=== PATIENT | male | born 1935 | race Caucasian/White ===

== ENCOUNTER 2017-04-17 12:08 | Inpatient (IN) ==
--- NOTE | 2017-04-17 12:26 | Emergency Department Note ---
Disposition Clinical Impression: Bradycardia Syncope Qualifiers: Syncope type: unspecified Qualified Code(s): R55 - Syncope and collapse Anemia Qualifiers: Anemia type: unspecified type Qualified Code(s): D64.9 - Anemia, unspecified Chronic kidney disease Qualifiers: Chronic kidney disease stage: unspecified stage Qualified Code(s): N18.9 - Chronic kidney disease, unspecified Disposition: Admitted As Inpatient Condition: Fair Syncope HPI - General Chief Complaint: ED Dizziness Stated Complaint: Dizzy/Weak/Near Syncope Time Seen by Provider: 04/17/17 12:15 Source: patient, EMS Mode of arrival: EMS Limitations: no limitations Nursing Notes Reviewed: Yes Vital Signs Reviewed: Yes - History of Present Illness HPI Narrative: 81-year-old male presents for evaluation for weakness AND syncope. Patient states that the symptoms have been for over a year but notes worsening in the past 24 hours. at bedside states he has had 2 single episodes where he passes out. Notes to be about 30 seconds. Denies any head injury or falls. Patient states it is prodrome prior to his facial flushing and weakness in the legs. Patient denies any chest penetrance of breath. Patient does have a extensive past medical history which includes A. fib on Coumadin. Patient also has a history of aortic repair. High blood pressure. Coronary artery disease. Patient denies any nausea or vomiting. No fevers. No cough. Denies any changes in medications. states that she administers the patient's medications. EMS reports that the patient did have long pauses in route via EMS. Patient was bradycardic in the 40s. Patient follows with cardiology at [facility]. Denies any dark stools or blood in his stool. Pt Subjective Complaint: loss of consciousness, felt faint Duration: second(s) Prodromal Symptoms: lightheaded Witnessed: yes - by bystander Context: at rest History: history of CAD Treatments prior to arrival: none Associated trauma secondary to event: No - Related Data Home Medications Medication Instructions Recorded Confirmed Acetaminophen [Tylenol] 1,000 mg PO Q6HR 04/17/17 04/17/17 Amiodarone [Cordarone] 100 mg PO DAILY 04/17/17 04/17/17 Amlodipine Besylate/Benazepril 1 tab PO DAILY 04/17/17 04/17/17 [Lotrel 5-20 mg Capsule] Aspirin 81 mg PO DAILY 04/17/17 04/17/17 Ferrous Sulfate [Iron] 325 mg PO DAILY 04/17/17 04/17/17 Metoprolol XL (24 HR) Succ [Toprol 25 mg PO DAILY 04/17/17 04/17/17 XL] Rosuvastatin Calcium [Crestor] 20 mg PO DAILY 04/17/17 04/17/17 Warfarin [Coumadin] 2 mg PO 1800 04/17/17 04/17/17 Allergies Allergy/AdvReac Type Severity Reaction Status Date / Time No Known Allergies Allergy Verified 03/10/16 15:01 All systems ED: reviewed and negative except as stated. Constitutional: Reports: as per HPI. Denies: fever Eyes: Reports: as per HPI ENT ED: Reports: as per HPI Cardiovascular: Reports: as per HPI. Denies: chest pain, palpitations Respiratory: Reports: as per HPI. Denies: cough, dyspnea Gastrointestinal: Reports: as per HPI. Denies: abdominal pain, nausea, vomiting Genitourinary: Reports: as per HPI Musculoskeletal: Reports: as per HPI Integumentary: Reports: as per HPI Neurological: Reports: as per HPI, weakness Psychiatric: Reports: as per HPI Endocrine: Reports: as per HPI Hematological/Lymphatic: Reports: as per HPI Allergic/Immunologic: Reports: as per HPI Past Medical History - Past Medical History Attestation: Yes The following information was validated with the patient. Medical history: Reports: atrial fibrillation, cancer, hypertension, myocardial infarction Psychiatric history: Reports: no psych history - Social History Smoking Status: Never smoker Smokeless Tobacco Status: No Alcohol use: Reports: occasionally Drug use: Reports: none Physical Exam - General Limitations: no limitations General appearance: alert, in no apparent distress - Head Head exam: atraumatic, normocephalic, normal inspection - Eye Eye exam: Present: normal appearance, EOMI - ENT ENT exam: normal exam, mucous membranes moist - Neck Neck exam: Present: normal inspection, trachea midline - Chest Chest inspection: Present: normal inspection, symmetric chest wall rise - Respiratory Respiratory exam: Present: normal lung sounds bilaterally. Absent: respiratory distress - Cardiovascular Cardiovascular exam: Present: bradycardia, irregular rhythm. Absent: systolic murmur - Abdominal Exam Abdominal exam: Present: soft, Non-Tender - Rectal Exam Secondary Social Studies Teacher present during exam: Yes Rectal exam: Present: normal inspection. Absent: heme (+) stool, black stool, bloody stool - Extremities Exam Extremities exam: Present: normal inspection. Absent: pedal edema - Back Exam Back exam: Present: normal inspection - Neurological Exam Neurological exam: Present: alert, oriented X3, CN II-XII intact - Expanded Neurological Exam Patient oriented to: Present: person, place, time Speech: Present: fluid speech Cranial nerves: EOM function (II, III, IV, ): Normal, facial sensation (V): Normal, facial palsy (VII): Normal, spinal accessory function (XI): Normal, tongue deviation (XII): Normal Cerebellar function: finger to nose: Normal Motor strength - LUE: 5/5 Motor strength - RUE: 5/5 Motor strength - LLE: 5/5 Motor strength - RLE: 5/5 Coma Scale Eye Opening: Spontaneous Coma Scale Motor Response: Obeys Commands Coma Scale Verbal Response: Oriented Coma Scale Total: 15 - Skin Skin exam: Present: warm, dry, intact, normal color, other Course Course Narrative: Patient seen and examined. Patient's alert and oriented 3. Rhythm strip reviewed the EMS shows long pauses with bradycardia in the 40s. Patient will get a cardiopulmonary evaluation including EKG, labs, chest x-ray troponin. Disposition likely admission for cardiopulmonary monitoring and cardiac evaluation. - Reevaluation(s) Reevaluation #1: Patient's resting comfortably. No acute distress. Time: 13:47 Vital Signs Temperature 98.9 F 04/17/17 12:10 Pulse Rate 66 04/17/17 12:10 Respiratory Rate 16 04/17/17 12:10 Blood Pressure 165/89 04/17/17 12:10 O2 Sat by Pulse Oximetry 100 04/17/17 12:10 Temperature 97.7 F 04/17/17 15:47 Pulse Rate 61 04/17/17 15:47 Respiratory Rate 16 04/17/17 15:47 Blood Pressure 187/55 04/17/17 15:47 O2 Sat by Pulse Oximetry 92 04/17/17 15:47 Oxygen Delivery Oxygen Delivery Room Air Syncope - [facility] Narrative Medical decision making narrative: 81-year-old male transferred by [facility] syncope. Patient has had witnessed syncopal episodes in the past 24 hours. No stiff last approximately 30 seconds. Does not describe an episode of seizures. No postictal period. Patient does have risk factor for syncope which includes arrhythmias. Patient has a history of A. fib on several antiarrhythmic medications which includes amiodarone metoprolol. Patient is also on blood pressure medicine including amlodipine. No recent changes in medications. Patient did have a prehospital EMS rhythm strip which showed a significant cause. Patient has not had any arrhythmias while in the emergency department. Patient's initial EKG shows normal sinus rhythm. Patient's lab work does show that he has chronic kidney disease. Patient is chronically anemic with negative occult blood. Patient also had a negative troponin. Given the degree of the patient's symptoms the patient would likely benefit from cardiopulmonary monitoring and further evaluation of his potential arrhythmia. Patient is therapeutic on his Coumadin. Patient is agreeable to plan of care. All questions were answered at bedside. - Lab Data Lab results reviewed: Yes I reviewed the patient's lab results. Result diagrams: 04/17/17 12:33 04/17/17 12:33 Lab Results 04/17/17 04/17/17 04/17/17 Range/Units 12:33 12:33 12:33 WBC 8.2 (4.3-11.1) K/mcL RBC 4.21 (4.19-5.50) M/mcL Hgb 12.0 L (12.9-16.9) g/dL Hct 36.7 L (37.5-50.1) % MCV 87.2 (83.0-100.0) fL MCH 28.5 (28.0-33.3) pg MCHC 32.7 (31.6-35.5) g/dL RDW 14.6 H (11.5-14.5) % Plt Count 115 L (140-400) K/mcL MPV 9.1 L (9.4-12.4) fL Immature Gran % 0.6 (0-4) % Seg Neutrophils % 65.9 % Lymphocytes % 20.7 % Monocytes % 10.2 % Eosinophils % 2.1 % Basophils % 0.5 % Neutrophils # 5.4 (1.6-8.9) K/mcL Lymphocytes # 1.7 (0.6-4.6) K/mcL Monocytes # 0.8 (0.0-1.3) K/mcL Eosinophils # 0.2 (0.0-0.6) K/mcL Basophils # 0.0 (0.0-0.2) K/mcL Immature Plt Fraction 2.5 (1.1-6.1) % PT 21.8 H (9.4-12.1) Seconds INR 2.0 Sodium 136 (136-145) mEq/L Potassium 4.1 (3.5-4.5) mEq/L Chloride 107 (98-109) mEq/L Carbon Dioxide 22 (19-29) mEq/L BUN 34 H (8-26) mg/dL Creatinine 1.70 H (0.72-1.25) mg/dL Est GFR ( Amer) 47 L (> 60) Est GFR (Non-Af Amer) 39 L (> 60) BUN/Creatinine Ratio 20 (6-26) Glucose 86 (70-99) mg/dL Calculated Osmolality 289 (280-300) Calcium 8.4 L (8.6-10.8) mg/dL Phosphorus (2.3-4.7) mg/dL Magnesium (1.6-2.6) mg/dL Total Bilirubin 0.6 (0.2-1.2) mg/dL AST 21 (5-34) Units/L ALT 17 (0-55) Units/L Alkaline Phosphatase 147 H (38-126) Units/L Troponin I (0-0.03) ng/mL B-Natriuretic Peptide (0-100) pg/mL Serum Total Protein 7.0 (6.0-8.3) g/dL Albumin 3.3 L (3.5-5.0) g/dL Globulin 3.7 H (2.4-3.5) g/dL Albumin/Globulin Ratio 0.9 L (1.1-2.2) 04/17/17 04/17/17 04/17/17 Range/Units 12:33 12:33 12:33 WBC (4.3-11.1) K/mcL RBC (4.19-5.50) M/mcL Hgb (12.9-16.9) g/dL Hct (37.5-50.1) % MCV (83.0-100.0) fL MCH (28.0-33.3) pg MCHC (31.6-35.5) g/dL RDW (11.5-14.5) % Plt Count (140-400) K/mcL MPV (9.4-12.4) fL Immature Gran % (0-4) % Seg Neutrophils % % Lymphocytes % % Monocytes % % Eosinophils % % Basophils % % Neutrophils # (1.6-8.9) K/mcL Lymphocytes # (0.6-4.6) K/mcL Monocytes # (0.0-1.3) K/mcL Eosinophils # (0.0-0.6) K/mcL Basophils # (0.0-0.2) K/mcL Immature Plt Fraction (1.1-6.1) % PT (9.4-12.1) Seconds INR Sodium (136-145) mEq/L Potassium (3.5-4.5) mEq/L Chloride (98-109) mEq/L Carbon Dioxide (19-29) mEq/L BUN (8-26) mg/dL Creatinine (0.72-1.25) mg/dL Est GFR ( Amer) (> 60) Est GFR (Non-Af Amer) (> 60) BUN/Creatinine Ratio (6-26) Glucose (70-99) mg/dL Calculated Osmolality (280-300) Calcium (8.6-10.8) mg/dL Phosphorus 2.2 L (2.3-4.7) mg/dL Magnesium 1.9 (1.6-2.6) mg/dL Total Bilirubin (0.2-1.2) mg/dL AST (5-34) Units/L ALT (0-55) Units/L Alkaline Phosphatase (38-126) Units/L Troponin I 0.02 (0-0.03) ng/mL B-Natriuretic Peptide 389 H (0-100) pg/mL Serum Total Protein (6.0-8.3) g/dL Albumin (3.5-5.0) g/dL Globulin (2.4-3.5) g/dL Albumin/Globulin Ratio (1.1-2.2) - Radiology Data Radiology results reviewed: Yes I reviewed the patient's radiology results. Chest X-Ray 04/17/17 12:21 IMPRESSION: Persistent blunting of the right costophrenic angle could represent a persistent right pleural effusion or scarring Stable cardiomegaly D/ / González Lawrence MD / González Lawrence MD Interpreting Provider: González Lawrence MD - EKG Data EKG attestation: Yes I reviewed and interpreted this EKG. EKG shows normal: sinus rhythm Rate: normal Rhythm: NSR Viola/QRS: normal Q waves: aVR Interpretation: unchanged when compared to prior tracing (date), nonspecific ST- T wave changes S.B.A.R. - Sugey.Cachorro Situation: Demographics Background: Presenting Complaint Assessment: Vital Signs, Course and respsone to treatment, Patient/Family Expectation Recommendation: Barrier(s) to disposition, Recommendation based on pending studies, treatments, or consults S.B.AToby Report Given to: Kimmy Friedman Repor Time: 14:04 Attestation Statement - Attestation Attestation: I examined this patient and my medical decision-making was reviewed with the DUMP OPERATOR/PA/Advanced Practice Nurse/Resident Physician. I agree with the documented findings, disposition and treatment plan as described except to the extent set forth below. 81-year-old male presents to ED because recurrent episodes of syncope. He has syncopal episode at the office of his primary care physician today. He has had several episodes at home as well. He reports feeling flushed and weak and then passes out for about 30 seconds at a time. Denies associated chest pain or dyspnea. No secondary injuries. No recent vomiting, diarrhea or bloody stools. No recent change in medications. Pleasant, elderly male in no apparent distress. The membranes are moist. Neck supple. Trachea midline no JVD. Chest clear to auscultation bilaterally. Cardiac exam regular but bradycardic. Abdomen soft, nondistended and nontender. Extremities warm and dry without rash or edema. EKG with sinus rhythm. 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 Prehospital tracing revealed heart rate down as low as 20 for short periods of time. Metabolic workup is unremarkable. He will be admitted for closer monitoring and further evaluation of his syncope.
[2017-04-17 12:41] LABS: Basophils % 0.5 %; Eosinophils # 0.2 K/mcL (0.0-0.6); Eosinophils % 2.1 %; Hematocrit 36.7 % (37.5-50.1); Immature Granulocytes % 0.6 % (0-4); Immature Platelets 2.5 % (1.1-6.1); Lymphocytes # 1.7 K/mcL (0.6-4.6); Lymphocytes % 20.7 %; Mean Corpuscular HGB Conc 32.7 g/dL (31.6-35.5); Mean Corpuscular Hemoglobin 28.5 pg (28.0-33.3); Mean Corpuscular Volume 87.2 fL (83.0-100.0); Mean Platelet Volume 9.1 fL (9.4-12.4); Monocytes # 0.8 K/mcL (0.0-1.3); Monocytes % 10.2 %; Neutrophils # 5.4 K/mcL (1.6-8.9); Platelet Count 115 K/mcL (140-400); Red Blood Count 4.21 M/mcL (4.19-5.50); Red Cell Distribution Width 14.6 % (11.5-14.5); Segmented Neutrophils % 65.9 %
[2017-04-17 12:45] LABS: Prothrombin Time 21.8 Seconds (9.4-12.1)
[2017-04-17 12:52] LABS: Magnesium 1.9 mg/dL (1.6-2.6); Phosphorous 2.2 mg/dL (2.3-4.7)
[2017-04-17 12:53] LABS: Albumin 3.3 g/dL (3.5-5.0); Albumin/Globulin Ratio 0.9 (1.1-2.2); Bilirubin,Total 0.6 mg/dL (0.2-1.2); Calcium 8.4 mg/dL (8.6-10.8); Globulin 3.7 g/dL (2.4-3.5); Potassium 4.1 mEq/L (3.5-4.5)
[2017-04-17] MEDS ORDERED: Acetaminophen 325 MG TABLET PO PRN (15:11)
[2017-04-17] MEDS ORDERED: Naloxone 0.4 MG/ML INJ IVP PRN (15:11)
--- NOTE | 2017-04-17 15:23 | Internal Med History&Physical ---
<Kimi Sweet - Last Filed: 04/17/17 17:43> Date of Encounter: 04/17/17 Time of Encounter: 15:22 Assessment and Plan (1) Syncope Current visit: Yes Status: Acute 1 patient has been experiencing episodes of syncope that have been occurring more frequently over the past week. Patient does have extensive cardiac history he is on antiarrhythmics He has some vascular conditions with a recent stent to his aorta. We will hold his metoprolol for now continue with amiodarone 2 obtain cardiac echo 3 cardiac monitoring 4carotid Dopplers [address] of head without contrast 6 orthostatic vitals 7 for precautions 8 consult cardiology as needed have patient follow-up as outpatient 9 consult neurology as needed Qualifiers: Syncope type: unspecified Qualified Code(s): R55 - Syncope and collapse (2) Bradycardia Current visit: Yes Status: Acute 1 patient has been experiencing episodes of bradycardia heart rate down into the 40s. He appears to be symptomatic. We will hold beta duane for now 2 continuous cardiac monitoring 3 IV fluids 4 atropine at bedside (3) Chronic kidney disease Current visit: No Status: Chronic 1 present he appears to be at his baseline creatinine. 1.70. We will continue to monitor 2 monitor intake and output daily weights 3 avoid nephrotoxins Qualifiers: Chronic kidney disease stage: stage 3 (moderate) Qualified Code(s): N18.3 - Chronic kidney disease, stage 3 (moderate) (4) Atrial fibrillation Current visit: Yes Status: Acute 1 we will hold beta duane for now due to bradycardia, continue with amiodarone 2 continue with Coumadin daily INR Qualifiers: Atrial fibrillation type: chronic Qualified Code(s): I48.2 - Chronic atrial fibrillation (5) Hypertension Current visit: Yes Status: Acute 1 we will continue with home medications goals to be systolic less than 140-if orthostatic vitals are positive we will hold Qualifiers: Hypertension type: essential hypertension Qualified Code(s): I10 - Essential (primary) hypertension (6) DVT prophylaxis Current visit: Yes Status: Acute Patient is on Coumadin he is therapeutic Internal Medicine - H&P: HPI Chief complaint: syncopal episode Admitted From: Emergency Dept Plans for Post Hospital Care: Home History of present illness: Mr. Dave is a 81 year old male has a history of atrial fibrillation hypertension hyperlipidemia coronary artery disease with stent stent placed and aorta November of this year's CK D stage III. Patient states that he has been experiencing episodes of syncope for approximately a month however within the past week the episodes become more frequent. According to the patient symptoms of facial flushing and weakness in his legs. He then is weak/limp unable to stand or control his limbs his eyes will roll back into his head and he is unable to respond. He states he does not lose consciousness, he is aware of his surroundings and came here what is going on but unable to respond. He states the episodes last approximately 30 seconds, he awakens and there is no post ictal period. He is aware of his surrounding is able to speak. He denies any loss of bowel or bladder. states she does notice some shaking of extremities however patient has constant tremor. He denies any palpitations headaches vision changes shortness of breath or chest pain prior or during the episodes denies any history of seizure or trauma to her head. He states that these episodes frequently occur after he has eaten. Today the patient presented to his primary care physician due to these complaints. He was walking into the physician's office and he felt flushed and told his that he was going to pass out. Staff assisted patient to a wheelchair blood glucose was obtained he was 90. EMS was called to transport patient to the ER. Upon transport was noted patient's heart rate in the 40s with several episodes of pauses. Once he arrived to the emergency department he was in atrial fibrillation in the 50s and 60s. He was alert and appropriate. Lab work was unremarkable troponin was 0.02 INR was therapeutic. Chest x-ray with her sister blunting and right costophrenic angle. He is being admitted for further work up evaluation. Presently the patient denies any chest pain shortness of breath dizziness lightheadedness he is appropriate and alert following commands. Lungs sounds are clear heart sounds S1 and S2 with no rubs, scales murmurs noted he has A. fib on the monitor and rate of 58. He is hemodynamically stable at this time IV this case with who agrees with plan. Past Med Surg Social Fam HX - Past Medical History Medical history: atrial fibrillation, cancer, hypertension, myocardial infarction Psychiatric history: no psych history - Social History Smoking Status: Never smoker Smokeless Tobacco Status: No Alcohol use: occasionally Drug use: none - Family History Mother Hx Family Cardiac Disorders: Yes Father Hx Family Respiratory Disorders: Yes Internal Medicine - H&P: Meds Acetaminophen [Tylenol] 1,000 mg PO Q6HR 04/17/17 [History] Amiodarone [Cordarone] 100 mg PO DAILY 04/17/17 [History] Amlodipine Besylate/Benazepril [Lotrel 5-20 mg Capsule] 1 tab PO DAILY 04/17/17 [History] Aspirin 81 mg PO DAILY 04/17/17 [History] Ferrous Sulfate [Iron] 325 mg PO DAILY 04/17/17 [History] Rosuvastatin Calcium [Crestor] 20 mg PO DAILY 04/17/17 [History] Warfarin [Coumadin] 2 mg PO 1800 04/17/17 [History] amLODIPine [Norvasc] 5 mg PO DAILY #30 tablet 04/20/17 [Rx] Allergies No Known Allergies Allergy (Verified 03/10/16 15:01) All Systems PM: A 10-system review of systems was performed and is negative for pertinent findings except as documented above in the HPI. - Constitutional Constitutional: no chills, no fever(s), no night sweats - EENT Eyes: no change in vision, no discharge, no pain, no photophobia - Cardiovascular Cardiovascular ROS IM: syncope, no chest pain, no diaphoresis, no dyspnea, no lightheadedness, no palpitations - Respiratory Respiratory: no cough, no dyspnea, no wheezing, no excessive phlegm production - Gastrointestinal Gastrointestinal: no abdominal pain, no diarrhea, no hematemesis, no hematochezia, no melena, no nausea, no vomiting - Musculoskeletal Musculoskeletal ROS IM: no numbness, no tingling - Integumentary Integumentary IM: no rash, no unusual bruising - Neurological Neurological ROS: no confusion, no convulsions, no focal weakness, no numbness, no tingling, no tremor(s) - Constitutional Vitals: Temp Pulse Resp BP Pulse Ox 98.9 F 59 16 177/77 97 04/17/17 12:10 04/17/17 14:44 04/17/17 14:44 04/17/17 14:44 04/17/17 14:44 General appearance: Present: A&O X 3, answers questions appropriately - Head Head exam: Present: atraumatic, normocephalic - Eye Eye exam: Present: PERRL, conjuntiva pink, sclera anicteric Pupils: Present: PERRL - Neck Neck exam general surgery: Present: supple, trachea midline. Absent: lymphadenopathy - Respiratory Respiratory exam: Present: CTAB. Absent: accessory muscle use, rales, rhonchi, wheezes - Cardiovascular Cardiovascular exam: Present: RRR, +S1, +S2. Absent: diastolic murmur, gallop, rubs, systolic murmur - GI/Abdominal GI/Abdominal exam: Present: normal bowel sounds, soft, no peritoneal signs. Absent: distended, tenderness - Extremities Exam Extremities exam: Present: warm, radial pulses palpable and symetrical. Absent : calf tenderness, cyanotic, pedal edema - Neurological Exam Neurological exam: Present: CN II-XII intact, oriented X3, no focal deficits. Absent: pronater drift, facial droop, speech deficit - Skin Skin exam: Present: dry, intact Internal Med - H&P Results - Labs CBC & Chem 7: 04/17/17 12:33 04/17/17 12:33 - EKG Data Prior EKG available for review: yes EKG comments: 04/17/17 17:46 Atrial fibrillation - Diagnostic Studies Chest x-ray Additional comments: Chest X-Ray 04/17/17 12:21 IMPRESSION: Persistent blunting of the right costophrenic angle could represent a persistent right pleural effusion or scarring Stable cardiomegaly D/ / González Lawrence MD / González Lawrence MD Interpreting Provider: González Lawrence MD <Edgar Crandall P - Last Filed: 04/20/17 17:53> Date of Encounter: 04/20/17 Internal Medicine - H&P: HPI History of present illness: Mr. Dave is a 81 year old male All Systems PM: A 10-system review of systems was performed and is negative for pertinent findings except as documented above in the HPI. - Constitutional Vitals: Temp Pulse Resp BP Pulse Ox 97.7 F 61 16 187/55 92 04/17/17 15:47 04/17/17 15:47 04/17/17 15:47 04/17/17 15:47 04/17/17 15:47 Internal Med - H&P Results - Labs CBC & Chem 7: 04/20/17 05:45 04/20/17 05:45 - Attending Attestation I examined this patient and my medical decision-making was reviewed with the GEAR INSPECTOR/PA/Advanced Practice Nurse/Resident Physician. I agree with the documented findings, disposition and treatment plan as described except to the extent set forth below.
[2017-04-17] MEDS ORDERED: *HR* Warfarin 2 MG TABLET PO SCH (18:00)
[2017-04-17] MEDS ORDERED: Warfarin perPT PO PRN (18:00)
[2017-04-17] MEDS: 0.9 % Sodium Chloride 1,000 ML IVC SCH (18:29)
[2017-04-18 01:23] LABS: Basophils % 0.4 %; Eosinophils # 0.2 K/mcL (0.0-0.6); Eosinophils % 3.1 %; Hematocrit 34.8 % (37.5-50.1); Hemoglobin 11.1 g/dL (12.9-16.9); Immature Granulocytes % 0.6 % (0-4); Lymphocytes # 1.4 K/mcL (0.6-4.6); Lymphocytes % 20.5 %; Mean Corpuscular HGB Conc 31.9 g/dL (31.6-35.5); Mean Corpuscular Hemoglobin 27.8 pg (28.0-33.3); Mean Corpuscular Volume 87.2 fL (83.0-100.0); Monocytes # 0.7 K/mcL (0.0-1.3); Monocytes % 10.5 %; Neutrophils # 4.3 K/mcL (1.6-8.9); Platelet Count 102 K/mcL (140-400); Red Blood Count 3.99 M/mcL (4.19-5.50); Red Cell Distribution Width 14.6 % (11.5-14.5); Segmented Neutrophils % 64.9 %
[2017-04-18 01:28] LABS: INR 1.9; Prothrombin Time 20.5 Seconds (9.4-12.1)
[2017-04-18 01:35] LABS: Calcium 8.3 mg/dL (8.6-10.8); Potassium 3.9 mEq/L (3.5-4.5)
--- NOTE | 2017-04-18 07:22 | Electrocardiograph Report ---
[place] [facility] Test Date: 2017-04-17 Pat Name: Isma Dave Department: 102 Room: 2A37 Gender: M Electrical Power Station Technician: Thor : 1935 Requested By: Kian Boston Order Number: [id number] Reading MD: Marcelo Reynolds MD Measurements Intervals [place] Rate: 65 P: -8 [place]: 183 QRS: 6 QRSD: 118 T: 60 QT: 463 QTc: 474 Interpretive Statements SINUS RHYTHM LEFT VENTRICULAR HYPERTROPHY AND ST-T CHANGE Electronically Signed On 04-18-2017 7:20:19 EDT by Marcelo Reynolds MD
[2017-04-18] MEDS: *HR* Amiodarone 200 MG TABLET PO SCH (07:59)
[2017-04-18] MEDS: Aspirin 81 MG TAB.CHEW PO SCH (08:00)
[2017-04-18] MEDS ORDERED: AMLODIPINE BESYLATE PO SCH (09:00)
[2017-04-18] MEDS ORDERED: BENAZEPRIL PO SCH (09:00)
--- NOTE | 2017-04-18 09:24 | Cardiology Consult Note ---
Date of Encounter: 04/18/17 Time of Encounter: 09:19 Assessment and Plan (1) Symptomatic bradycardia Current Visit: Yes Status: Acute Reports intermittent dizziness over the past year that has recently worsened. Dizziness accompanied by weakness. HR reportedly 30s-40s during transport. HR 65 on ED EKG. He denies losing consciousness, states he is aware of surroundings , but unable to respond when the episodes occur. On Amiodarone 100mg daily and Toprol XL 25mg daily. Follows with cardiology at [facility]. He reports last seen 11/2016. K and Mag within normal range. Check TSH. 24 hour tele AVG HR 59, longest pause 4.6 seconds during nocturnal hours. Agree with stopping Toprol XL. Avoid AV andrew blockers. Pt currently remains on Amiodarone 100mg daily. Will discuss with Dr. Hsu. Check echo to evaluate structure and function. Continue to follow. No urgent need for PPM at this time. (2) CAD (coronary artery disease) Current Visit: Yes Status: Chronic Pt reports hx of PCI 2-3 years ago at [facility]. Denies chest pain. Troponins negative x 3. ASA, Statin. No BB due to bradycardia. Qualifiers: Coronary Disease-Associated Artery/Lesion type: [place] artery [place] vs. transplanted heart: [place] heart Associated angina: without angina Qualified Code(s): I25.10 - Atherosclerotic heart disease of [place] coronary artery without angina pectoris (3) Atrial fibrillation Current Visit: Yes Status: Chronic Appears to be maintaining SR on Amiodarone. Anticoagulated on Coumadin, INR 1.9. Qualifiers: Atrial fibrillation type: unspecified Qualified Code(s): I48.91 - Unspecified atrial fibrillation (4) Hypertension Current Visit: Yes Status: Acute Elevated on admission, now better controlled. Will continue to monitor and add antihypertensives as necessary. Qualifiers: Hypertension type: essential hypertension Qualified Code(s): I10 - Essential (primary) hypertension Discussion w patient/family: The assessment and plan as outlined above was discussed with the patient and/or family members who expressed understanding and agreement. All questions were answered. Thank you for involving us in the care of your patient. Please call with any questions. I will discuss all the above with Dr. Hsu and make changes as necessary. History of Present Illness Consult date: 04/18/17 Requesting physician: Kimi Sweet Consult reason: bradycardia Chief complaint: dizzy, lightheaded History of present illness: Mr. Dave is a 81 year old male with PMH of atrial fibrillation on Coumadin, hypertension, hyperlipidemia, coronary artery disease with hx of PCI, stent placed for AAA in November, CKD stage III. Patient states that he has been experiencing episodes of dizziness/lightheadedness over the past year, but recently has been more frequent. He states he initially gets facial flushing and weakness in his legs. He then is weak/limp unable to stand or control his limbs his eyes will roll back into his head and he is unable to respond. However , he does not lose consciousness, reports he is aware of his surroundings and has never lost consciousness. He had episodes in PCP office yesterday and squad was called. He denies any palpitations headaches vision changes shortness of breath or chest pain prior or during the episodes denies any history of seizure or trauma to her head. Upon transport was noted patient's heart rate in the 40s with several episodes of pauses. Once he arrived to the ED HR was 50s-60s. Pt is on Amiodarone 100mg daily at home, reports being on for 4-5 years. He was also on Toprol XL at home, held since admission. 24 hour tele AVG HR 59, 4.6 second pause nocturnal. Pt reports HR was 37 around 4 AM and he was dizzy, since resolved. Past Med Surg Social Fam HX - Past Medical History Medical history: aortic aneurysm, atrial fibrillation, cancer, coronary artery disease, hypertension, myocardial infarction Psychiatric history: no psych history - Past Surgical History Surgical History: angioplasty/stent - Social History Smoking Status: Never smoker Smokeless Tobacco Status: No Alcohol use: occasionally Drug use: none - Family History Mother Hx Family Cardiac Disorders: Yes Father Hx Family Respiratory Disorders: Yes Medications and Allergies Acetaminophen [Tylenol] 1,000 mg PO Q6HR 04/17/17 [History] Amiodarone [Cordarone] 100 mg PO DAILY 04/17/17 [History] Amlodipine Besylate/Benazepril [Lotrel 5-20 mg Capsule] 1 tab PO DAILY 04/17/17 [History] Aspirin 81 mg PO DAILY 04/17/17 [History] Ferrous Sulfate [Iron] 325 mg PO DAILY 04/17/17 [History] Metoprolol XL (24 HR) Succ [Toprol XL] 25 mg PO DAILY 04/17/17 [History] Rosuvastatin Calcium [Crestor] 20 mg PO DAILY 04/17/17 [History] Warfarin [Coumadin] 2 mg PO 1800 04/17/17 [History] Allergies No Known Allergies Allergy (Verified 03/10/16 15:01) All Systems Review: A 10-system review of systems was performed and is negative for pertinent findings except as documented above in the HPI. - Constitutional Constitutional: fatigue, weakness - Cardiovascular Cardiovascular: as per HPI, lightheadedness - Neurological Neurological: dizziness Physical Examination Vital Signs, Last 4 Hours Temp Pulse Resp BP Pulse Ox 04/18/17 06:38 98.6 F 61 18 154/72 97 Vital Signs Temp Pulse Resp BP Pulse Ox 04/18/17 06:38 98.6 F 61 18 154/72 97 04/18/17 03:43 97.8 F 51 18 123/58 97 04/18/17 00:16 98.3 F 62 18 148/64 97 04/17/17 19:19 98 F 59 16 184/79 97 04/17/17 15:47 97.7 F 61 16 187/55 92 04/17/17 15:25 16 177/77 04/17/17 14:44 59 16 177/77 97 04/17/17 14:05 58 16 177/85 96 04/17/17 13:22 62 17 172/104 98 04/17/17 12:53 59 17 179/88 99 04/17/17 12:10 98.9 F 66 16 165/89 100 Intake and Output 04/17/17 04/18/17 04/18/17 23:59 07:59 15:59 Intake Total 120 / 120 480 / 480 Output Total 880 / 880 Balance -760 / -760 480 / 480 Intake: Oral 120 / 120 480 / 480 Output: Urine 880 / 880 Other: Meal Dinner Breakfast Percent of Meal Consumed 100% 100% Weight 68.3 kg Patient Weight 04/18/17 23:59 Weight 68.3 kg General: Conversant, No Apparent Distress HEENT: Atraumatic, Normocephaly, Mucus Membranes Moist Neck: No JVD, Normal carotid pulses Cardiac: Reg Rate and Rhythm, Normal S1 and S2, No Murmur Lungs: Normal Breath Sounds, No Wheeze, Rales, Rhonchi Neuro: Alert and responsive, No focal deficits noted Abdomen: Soft, Non-Tender Skin: No rashes noted on visualized skin Musculoskeletal: No Chest Wall Tenderness Extremities: No Clubbing, No Cyanosis, No Edema, Normal Pulses Results 04/18/17 00:49 04/18/17 00:49 Lab Results 04/17/17 04/18/17 04/18/17 17:58 00:49 00:49 WBC 6.7 Hgb 11.1 L Hct 34.8 L Plt Count 102 L INR Sodium Potassium Chloride Carbon Dioxide BUN Creatinine Glucose Calcium Troponin I 0.02 0.03 04/18/17 04/18/17 00:49 00:49 WBC Hgb Hct Plt Count INR 1.9 Sodium 138 Potassium 3.9 Chloride 110 H Carbon Dioxide 21 BUN 28 H Creatinine 1.68 H Glucose 108 H Calcium 8.3 L Troponin I Short CBC 04/18/17 04/17/17 Range/Units 00:49 12:33 WBC 6.7 8.2 (4.3-11.1) K/mcL Hgb 11.1 L 12.0 L (12.9-16.9) g/dL Hct 34.8 L 36.7 L (37.5-50.1) % Plt Count 102 L 115 L (140-400) K/mcL Neutrophils # 4.3 5.4 (1.6-8.9) K/mcL BMP 04/18/17 04/17/17 Range/Units 00:49 12:33 Sodium 138 136 (136-145) mEq/L Potassium 3.9 4.1 (3.5-4.5) mEq/L Chloride 110 H 107 (98-109) mEq/L Carbon Dioxide 21 22 (19-29) mEq/L BUN 28 H 34 H (8-26) mg/dL Creatinine 1.68 H 1.70 H (0.72-1.25) mg/dL Glucose 108 H 86 (70-99) mg/dL Calcium 8.3 L 8.4 L (8.6-10.8) mg/dL Cardiac Enzymes 04/18/17 04/17/17 04/17/17 Range/Units 00:49 17:58 12:33 Troponin I 0.03 0.02 0.02 (0-0.03) ng/mL Liver Function 04/17/17 Range/Units 12:33 Total Bilirubin 0.6 (0.2-1.2) mg/dL AST 21 (5-34) Units/L ALT 17 (0-55) Units/L Alkaline Phosphatase 147 H (38-126) Units/L Albumin 3.3 L (3.5-5.0) g/dL Impressions Chest X-Ray 04/17/17 12:21 IMPRESSION: Persistent blunting of the right costophrenic angle could represent a persistent right pleural effusion or scarring Stable cardiomegaly D/ / González Lawrence MD / González Lawrence MD Interpreting Provider: González Lawrence MD Head CT 04/17/17 16:03 IMPRESSION: No acute intracranial abnormality. D/ / Louis Hanley MD / Louis Hanley MD Interpreting Provider: Louis Hanley MD Active Medications Acetaminophen (Tylenol) 650 mg PO Q6HR PRN PRN Reason: Mild Pain (1-3) Stop: 10/17/17 15:12 Amiodarone HCl (Cordarone) 100 mg PO DAILY [facility] Stop: 10/18/17 09:01 Last Admin: 04/18/17 07:59 Dose: 100 mg Aspirin (Aspirin) 81 mg PO DAILY [facility] Stop: 10/18/17 09:01 Last Admin: 04/18/17 08:00 Dose: 81 mg Ferrous Sulfate (Ferrous Sulfate) 325 mg PO DAILY [facility] Stop: 10/18/17 09:01 Hydralazine HCl (Hydralazine) 10 mg IVP Q6HR PRN PRN Reason: sbp >150 Stop: 10/17/17 20:19 Naloxone HCl (Narcan) 0.4 mg IVP Q2MIN PRN PRN Reason: Opioid Reversal Stop: 10/17/17 15:12 Pharmacy Profile Note (Patient Taking Own Medication) 0 each PO DAILY [facility] Stop: 10/18/17 09:01 Last Admin: 04/18/17 08:30 Dose: Not Given Rosuvastatin Calcium (Crestor) 20 mg PO DAILY [facility] Stop: 10/18/17 09:01 Last Admin: 04/18/17 08:00 Dose: 20 mg Warfarin Sodium (Coumadin) 2 mg PO 1800 [facility] Stop: 10/17/17 18:01 Last Admin: 04/17/17 18:24 Dose: 2 mg Warfarin Sodium (Coumadin Perpt) 1 each PO DAILY@1800 PRN PRN Reason: SEE COMMENTS Stop: 10/17/17 18:01 - EKG Interpretation EKG results cardiology: personally reviewed (SR, 1st degree block), other (24 hour tele AVG HR 59, nocturnal pauses up to 4.6 seconds.) Consult Discharge Plan - Plan Referrals: Kane Phillips MD [Primary Care Provider] -
--- NOTE | 2017-04-18 13:35 | Internal Med Progress Note ---
Date of Encounter: 04/18/17 Time of Encounter: 13:31 - Subjective Interval history: Patient seen and examined at bedside. Resting comfortably in bed and in no distress. Reported to have an episode of bradycardia overnight for which he was awoken by the nursing staff, states as he woke up, he felt dizzy at that time but denies any recurrent episodes. No other discomfort reported at this time. Assessment and Plan (1) Syncope Current visit: Yes Status: Acute Likely secondary to bradycardia will hold BB dose no recurrent episodes since hospitalization continue tele monitoring f/u 2D echo, carotid dopplers CT head negative for any acute intracranial abnormalities cardiology consultation appreciated. Qualifiers: Syncope type: unspecified Qualified Code(s): R55 - Syncope and collapse (2) Bradycardia Current visit: Yes Status: Acute Resolved at this time will continue to hold BB dose continue tele monitoring (3) Chronic kidney disease Current visit: No Status: Chronic renal funciton at baseline continue to monitor Qualifiers: Chronic kidney disease stage: stage 3 (moderate) Qualified Code(s): N18.3 - Chronic kidney disease, stage 3 (moderate) (4) Atrial fibrillation Current visit: Yes Status: Acute Hold BB at this time continue amiodarone pharmacy to dose coumadin monitor INR, goal INR: 2-3 Qualifiers: Atrial fibrillation type: chronic Qualified Code(s): I48.2 - Chronic atrial fibrillation (5) Hypertension Current visit: Yes Status: Acute Noted to be hypertensive will hold BB given bradycardia added Hydralazine 10mg IV q6h prn SBP>150 Qualifiers: Hypertension type: essential hypertension Qualified Code(s): I10 - Essential (primary) hypertension (6) DVT prophylaxis Current visit: Yes Status: Acute anticoagulated with Coumadin - Constitutional Vitals: Temp Pulse Resp BP Pulse Ox 98.9 F 63 18 155/64 92 04/18/17 10:46 04/18/17 10:46 04/18/17 10:46 04/18/17 10:46 04/18/17 10:46 General appearance: Present: A&O X 3, no acute distress - Head Head exam: Present: atraumatic, normocephalic - Eye Eye exam: Present: normal appearance, conjuntiva pink, sclera anicteric - Respiratory Respiratory exam: Present: CTAB. Absent: accessory muscle use, rales, rhonchi, wheezes - Cardiovascular Cardiovascular exam: Present: RRR, +S1, +S2. Absent: diastolic murmur, gallop, rubs, systolic murmur - GI/Abdominal GI/Abdominal exam: Present: normal bowel sounds, soft, no peritoneal signs. Absent: distended, tenderness - Extremities Exam Extremities exam: Present: warm, radial pulses palpable and symetrical. Absent : calf tenderness, pedal edema - Neurological Exam Neurological exam: Present: alert, oriented X3 - Psychiatric Psychiatric exam: Present: normal affect, normal mood Internal Medicine: Result - Labs CBC & Chem 7: 04/18/17 00:49 04/18/17 00:49 Labs: Short CBC 04/18/17 Range/Units 00:49 WBC 6.7 (4.3-11.1) K/mcL Hgb 11.1 L (12.9-16.9) g/dL Hct 34.8 L (37.5-50.1) % Plt Count 102 L (140-400) K/mcL Neutrophils # 4.3 (1.6-8.9) K/mcL BMP 04/18/17 00:49 Sodium 138 Potassium 3.9 Chloride 110 H Carbon Dioxide 21 BUN 28 H Creatinine 1.68 H Glucose 108 H Calcium 8.3 L Cardiac Enzymes 04/17/17 04/18/17 Range/Units 17:58 00:49 Troponin I 0.02 0.03 (0-0.03) ng/mL - ABG Interpretation ABG results: PT/INR, D-dimer PT 20.5 Seconds (9.4-12.1) H 04/18/17 00:49 - Impressions Impressions Head CT 04/17/17 16:03 IMPRESSION: No acute intracranial abnormality. D/ / Louis Hanley MD / Louis Hanley MD Interpreting Provider: Louis Hanley MD Consult Discharge Plan - Plan Referrals: Kane Phillips MD [Primary Care Provider] -
--- NOTE | 2017-04-18 15:56 | Carotid Imaging Report ---
Carotid Duplex Patient Name:Isma Dave Order Number:[id number] Procedure Date:04/17/2017 Date:4Age:81 yrs Gender:Male Rt.BP:187 / 55 mmHgHeart Rate: Location:[facility] Room #: 37 Product Safety Technician:Amira Cosby, [place] Referring MD:Kimi Sweet CNP client experience consultant:Kane Phillips M.D. Reading MD:Magdi Bell MD Primary Indications:Syncope and collapse Risk Factors Yes/No Hypertension Yes Hypercholesterolemia Yes Impressions: Findings: Bilateral proximal ICA has a severe, 60-79% stenosis. Recommendations: Risk Factor Modification, Medical Therapy, and Follow up exam 12 months. Preliminary noted in pt EMR. Findings Carotid Duplex: Right: The right proximal common carotid artery has a PSV of 71 cm/s and a EDV of 11 cm/s. There is nonstenotic plaque in the right mid common carotid artery with a PSV of 75 cm/s and a EDV of 11 cm/s. The right distal common carotid artery has a PSV of 71 cm/s and a EDV of 13 cm/s. There is nonstenotic plaque in the right bifurcation with a PSV of 68 cm/s and a EDV of 13 cm/s. There is irregular plaque. There is 60-79% stenosis in the right proximal internal carotid artery with a PSV of 166 cm/s and a EDV of 31 cm/s. There is irregular plaque. The right mid internal carotid artery has a PSV of 67 cm/s and a EDV of 11 cm/s. The right distal internal carotid artery has a PSV of 60 cm/s and a EDV of 10 cm/s. The right eca has a PSV of 218 cm/s and a EDV of 16 cm/s. The right vertebral artery has a PSV of 75 cm/s and a EDV of 13 cm/s. There is antegrade spectral Doppler flow patterns. Left: The left proximal common carotid artery has a PSV of 83 cm/s and a EDV of 12 cm/s. The left mid common carotid artery has a PSV of 87 cm/s and a EDV of 15 cm/s. The left distal common carotid artery has a PSV of 78 cm/s and a EDV of 16 cm/s. There is nonstenotic plaque in the left bifurcation with a PSV of 157 cm/s and a EDV of 19 cm/s. There is 60-79% stenosis in the left proximal internal carotid artery with a PSV of 162 cm/s and a EDV of 20 cm/s. The left mid internal carotid artery has a PSV of 110 cm/s and a EDV of 18 cm/s. The left distal internal carotid artery has a PSV of 88 cm/s and a EDV of 19 cm/s. The left eca has a PSV of 179 cm/s and a EDV of 10 cm/s. The left vertebral artery has a PSV of 59 cm/s and a EDV of 13 cm/s. There is antegrade spectral Doppler flow patterns. Prior Study: No prior study available for comparison. Carotid Results Right PSV EDV Assessment Proximal CCA 71 11 Mid CCA 75 11 Non Stenotic Plaque Distal CCA 71 13 Bifurcation 68 13 Non Stenotic Plaque Proximal ICA 166 31 60-79% stenosis Mid ICA 67 11 Distal ICA 60 10 ECA 218 16 Vertebral Artery 75 13 Antegrade Flow Left PSV EDV Assessment Proximal CCA 83 12 Mid CCA 87 15 Distal CCA 78 16 Bifurcation 157 19 Non Stenotic Plaque Proximal ICA 162 20 60-79% stenosis Mid ICA 110 18 Distal ICA 88 19 ECA 179 10 Vertebral Artery 59 13 Antegrade Flow Ratio's Right ICA/CCA Ratio: 2.21 ICA/CCA Values: 166/75 Left ICA/CCA Ratio: 1.86 ICA/CCA Values: 162/87 Updated by Magdi Bell MD on 04/18/2017 3:52:27 PM electronically signed on 04/18/2017 3:52:51 PM with status of Final
[2017-04-18] MEDS: 0.9 % Sodium Chloride 1,000 ML IVC SCH (16:05)
[2017-04-19 05:01] LABS: INR 1.8; Prothrombin Time 19.3 Seconds (9.4-12.1)
[2017-04-19] MEDS: *HR* Amiodarone 200 MG TABLET PO SCH (08:20)
[2017-04-19] MEDS: Aspirin 81 MG TAB.CHEW PO SCH (08:20)
[2017-04-19] MEDS: AMLODIPINE BESYLATE PO SCH (08:21)
[2017-04-19] MEDS: BENAZEPRIL PO SCH (08:21)
[2017-04-19] MEDS ORDERED: amLODIPine 5 MG TABLET PO ONE (08:43)
[2017-04-19 09:05] LABS: Basophils % 0.5 %; Eosinophils # 0.2 K/mcL (0.0-0.6); Eosinophils % 2.6 %; Hematocrit 38.5 % (37.5-50.1); Hemoglobin 12.3 g/dL (12.9-16.9); Immature Granulocytes % 0.5 % (0-4); Lymphocytes # 1.3 K/mcL (0.6-4.6); Lymphocytes % 17.7 %; Mean Corpuscular HGB Conc 31.9 g/dL (31.6-35.5); Mean Corpuscular Hemoglobin 28.6 pg (28.0-33.3); Mean Corpuscular Volume 89.5 fL (83.0-100.0); Mean Platelet Volume 10.1 fL (9.4-12.4); Monocytes # 0.7 K/mcL (0.0-1.3); Monocytes % 9.7 %; Neutrophils # 5.1 K/mcL (1.6-8.9); Platelet Count 103 K/mcL (140-400); Red Cell Distribution Width 15.1 % (11.5-14.5)
[2017-04-19 09:18] LABS: Calcium 8.6 mg/dL (8.6-10.8); Magnesium 2.1 mg/dL (1.6-2.6); Phosphorous 2.7 mg/dL (2.3-4.7); Potassium 3.9 mEq/L (3.5-4.5)
--- NOTE | 2017-04-19 09:42 | Cardiology Progress Note ---
Date of Encounter: 04/19/17 Time of Encounter: 09:40 Assessment and Plan (1) Symptomatic bradycardia Current Visit: Yes Status: Resolved Reports intermittent dizziness and presyncope over the past year that has recently worsened with HR 30s-40s during transport, pause up to 4.6 seconds on tele 04/18/17. Stopped Toprol XL 25mg daily. On Amiodarone 100mg daily. Follows with cardiology at [facility]. He reports last seen 11/2016. HR now improved since stopping BB. 12 hour tele AVG HR 68, lowest HR 59, no significant pauses. Pt has not had any pauses since yesterday 04/18 AM at 9:50 4.2 seconds. Pt denies any dizziness since yesterday. Echo EF 50%. Discussed with Dr. Hsu. Recommend monitoring one more night. Will re- evaluate in AM. Do not anticipate that PPM will be warranted during stay. (2) CAD (coronary artery disease) Current Visit: Yes Status: Chronic Pt reports hx of PCI 2-3 years ago at [facility]. Denies chest pain. Troponins negative x 3. ASA, Statin. No BB due to bradycardia. Qualifiers: Coronary Disease-Associated Artery/Lesion type: [place] artery [place] vs. transplanted heart: [place] heart Associated angina: without angina Qualified Code(s): I25.10 - Atherosclerotic heart disease of [place] coronary artery without angina pectoris (3) Atrial fibrillation Current Visit: Yes Status: Chronic Appears to be maintaining SR on Amiodarone. Anticoagulated on Coumadin, INR 1.8. Will resume, since does not appear PPM will be warranted. Qualifiers: Atrial fibrillation type: unspecified Qualified Code(s): I48.91 - Unspecified atrial fibrillation (4) Hypertension Current Visit: Yes Status: Acute Elevated. Start Norvasc. Qualifiers: Hypertension type: essential hypertension Qualified Code(s): I10 - Essential (primary) hypertension Discussion w patient/family: The assessment and plan as outlined above was discussed with the patient and/or family members who expressed understanding and agreement. All questions were answered. Thank you for involving us in the care of your patient. Please call with any questions. I will discuss all the above with Dr. Hsu and make changes as necessary. Subjective Principal diagnosis: bradycardia Interval history: Pt denies any dizziness overnight. 12 hour tele AVG HR 68, no significant pauses. Lowest HR in past 12 hours 59. Last pause noted was yesterday AM at 9: 50 4.2 seconds. Echo EF 50%, mild concentric LVH, mild diastolic dysfunction, mild AR. Objective Vital Signs, Last 4 Hours Temp Pulse Resp BP Pulse Ox 04/19/17 06:40 98.5 F 69 18 177/83 93 Vital Signs Temp Pulse Resp BP Pulse Ox 04/19/17 06:40 98.5 F 69 18 177/83 93 04/19/17 04:11 98.5 F 70 16 134/55 96 04/19/17 00:07 98.6 F 72 16 163/72 97 04/18/17 19:25 98.9 F 72 16 154/66 96 04/18/17 15:32 98.7 F 65 18 168/71 94 04/18/17 10:46 98.9 F 63 18 155/64 92 Intake and Output 04/18/17 04/19/17 04/19/17 23:59 07:59 15:59 Intake Total 0 / 0 480 / 480 Balance 0 / 0 480 / 480 Intake: Oral 0 / 0 480 / 480 Other: Meal Breakfast Percent of Meal Consumed 100% Weight 68.765 kg Patient Weight 04/19/17 23:59 Weight 68.765 kg General: Conversant, No Apparent Distress HEENT: Atraumatic, Normocephaly, Mucus Membranes Moist Neck: No JVD, Normal carotid pulses Cardiac: Reg Rate and Rhythm, Normal S1 and S2, No Murmur Lungs: Normal Breath Sounds, No Wheeze, Rales, Rhonchi Neuro: Alert and responsive, No focal deficits noted Abdomen: Soft, Non-Tender Skin: No rashes noted on visualized skin Musculoskeletal: No Chest Wall Tenderness Extremities: No Clubbing, No Cyanosis, No Edema, Normal Pulses Results 04/19/17 08:48 04/19/17 08:48 Lab Results 04/19/17 04/19/17 04/19/17 04:18 08:48 08:48 WBC 7.4 Hgb 12.3 L Hct 38.5 Plt Count 103 L INR 1.8 Sodium 138 Potassium 3.9 Chloride 110 H Carbon Dioxide 21 BUN 26 Creatinine 1.86 H Glucose 131 H Calcium 8.6 Magnesium 2.1 - Imaging and Cardiology Echo: report reviewed - EKG Interpretation EKG results cardiology: other (12 hour tele AVG HR 68, no significant pauses) Consult Discharge Plan - Plan Referrals: Kane Phillips MD [Primary Care Provider] -
--- NOTE | 2017-04-19 12:47 | Internal Med Progress Note ---
Date of Encounter: 04/19/17 Time of Encounter: 12:44 - Subjective Interval history: Patient seen and examined with family present at bedside. Reports of feeling well and no recurrent episodes of dizziness since yesterday. No recurrent episodes of bradycardia reported. Assessment and Plan (1) Syncope Current visit: Yes Status: Acute Likely secondary to bradycardia continue to hold BB dose no recurrent episodes since hospitalization continue tele monitoring Carotid dopplers positive for severe bilateral carotid stenosis. Vascular surgery consultation requested CT head negative for any acute intracranial abnormalities cardiology consultation appreciated. Qualifiers: Syncope type: unspecified Qualified Code(s): R55 - Syncope and collapse (2) Bradycardia Current visit: Yes Status: Acute Resolved at this time will continue to hold BB dose continue tele monitoring (3) Chronic kidney disease Current visit: No Status: Chronic renal funciton at baseline continue to monitor Qualifiers: Chronic kidney disease stage: stage 3 (moderate) Qualified Code(s): N18.3 - Chronic kidney disease, stage 3 (moderate) (4) Atrial fibrillation Current visit: Yes Status: Acute Hold BB at this time continue amiodarone pharmacy to dose coumadin monitor INR, goal INR: 2-3 coumadin was placed on hold by cardiology as there was a possibility of pt requiring PPM placement, however rate currently controlled and pt asymptomatic, will resume coumadin today. Qualifiers: Atrial fibrillation type: chronic Qualified Code(s): I48.2 - Chronic atrial fibrillation (5) Hypertension Current visit: Yes Status: Acute Noted to be hypertensive this morning gave additional dose of amlodipine 5mg PO with adequate BP control Hydralazine 10mg IV q6h prn SBP>150 will closely monitor Qualifiers: Hypertension type: essential hypertension Qualified Code(s): I10 - Essential (primary) hypertension (6) DVT prophylaxis Current visit: Yes Status: Acute anticoagulated with Coumadin - Constitutional Vitals: Temp Pulse Resp BP Pulse Ox 98.7 F 71 18 149/66 94 04/19/17 10:42 04/19/17 10:42 04/19/17 10:42 04/19/17 10:42 04/19/17 10:42 General appearance: Present: A&O X 3, no acute distress - Head Head exam: Present: atraumatic, normocephalic - Eye Eye exam: Present: normal appearance, conjuntiva pink, sclera anicteric - Respiratory Respiratory exam: Present: CTAB. Absent: accessory muscle use, rales, rhonchi, wheezes - Cardiovascular Cardiovascular exam: Present: RRR, +S1, +S2. Absent: diastolic murmur, gallop, rubs, systolic murmur - GI/Abdominal GI/Abdominal exam: Present: normal bowel sounds, soft, no peritoneal signs. Absent: distended, tenderness - Extremities Exam Extremities exam: Present: warm, radial pulses palpable and symetrical. Absent : calf tenderness, cyanotic, pedal edema - Neurological Exam Neurological exam: Present: alert, oriented X3 - Psychiatric Psychiatric exam: Present: normal affect, normal mood Internal Medicine: Result - Labs CBC & Chem 7: 04/19/17 08:48 04/19/17 08:48 Labs: Short CBC 04/19/17 Range/Units 08:48 WBC 7.4 (4.3-11.1) K/mcL Hgb 12.3 L (12.9-16.9) g/dL Hct 38.5 (37.5-50.1) % Plt Count 103 L (140-400) K/mcL Neutrophils # 5.1 (1.6-8.9) K/mcL BMP 04/19/17 08:48 Sodium 138 Potassium 3.9 Chloride 110 H Carbon Dioxide 21 BUN 26 Creatinine 1.86 H Glucose 131 H Calcium 8.6 - ABG Interpretation ABG results: PT/INR, D-dimer PT 19.3 Seconds (9.4-12.1) H 04/19/17 04:18 Consult Discharge Plan - Plan Referrals: Kane Phillips MD [Primary Care Provider] -
[2017-04-19] MEDS ORDERED: Warfarin perPT PO PRN (18:00)
[2017-04-19] MEDS ORDERED: *HR* Warfarin 3 MG TABLET PO ONE (18:00)
[2017-04-20 06:20] LABS: INR 1.7; Prothrombin Time 18.7 Seconds (9.4-12.1)
[2017-04-20 06:25] LABS: Basophils % 0.3 %; Eosinophils # 0.2 K/mcL (0.0-0.6); Eosinophils % 3.6 %; Hematocrit 36.3 % (37.5-50.1); Hemoglobin 11.4 g/dL (12.9-16.9); Immature Granulocytes % 0.5 % (0-4); Lymphocytes # 1.1 K/mcL (0.6-4.6); Lymphocytes % 17.4 %; Mean Corpuscular HGB Conc 31.4 g/dL (31.6-35.5); Mean Corpuscular Hemoglobin 27.9 pg (28.0-33.3); Monocytes # 0.8 K/mcL (0.0-1.3); Monocytes % 11.8 %; Neutrophils # 4.3 K/mcL (1.6-8.9); Platelet Count 106 K/mcL (140-400); Red Blood Count 4.08 M/mcL (4.19-5.50); Segmented Neutrophils % 66.4 %
[2017-04-20 06:31] LABS: Calcium 8.6 mg/dL (8.6-10.8); Phosphorous 3.1 mg/dL (2.3-4.7); Potassium 3.9 mEq/L (3.5-4.5)
[2017-04-20 06:53] LABS: Thyroid Stimulating Hormone 0.694 mcIU/mL (0.350-4.840)
--- NOTE | 2017-04-20 08:06 | Electrocardiograph Report ---
[place] [address] Test Date: 2017-04-18 Pat Name: DELMY LEBLANC Department: 112 Room: 2A37 Gender: Male Pack Master: GWENDOLYN : 1935 Requested By: Gricel Garza Order Number: [id number] Reading MD: Scott Hsu DO Measurements Intervals [place] Rate: 58 P: 14 MT: 215 QRS: 14 QRSD: 122 T: 62 QT: 472 QTc: 470 Interpretive Statements SINUS BRADYCARDIA WITH FIRST DEGREE AV BLOCK LEFT VENTRICULAR HYPERTROPHY AND ST-T CHANGE Electronically Signed On 04-20-2017 8:04:22 EDT by Scott Hsu DO
[2017-04-20] MEDS ORDERED: amLODIPine 5 MG TABLET PO SCH ×2 (09:00→10:41)
--- NOTE | 2017-04-20 09:42 | Cardiology Progress Note ---
Date of Encounter: 04/20/17 Time of Encounter: 09:40 Assessment and Plan (1) Symptomatic bradycardia Current Visit: Yes Status: Resolved Reports intermittent dizziness and presyncope over the past year that has recently worsened with HR 30s-40s during transport, pause up to 4.6 seconds on tele 04/18/17. Stopped Toprol XL 25mg daily. On Amiodarone 100mg daily. Follows with cardiology at [facility]. He reports last seen 11/2016. HR now improved since stopping BB. 24 hour tele AVG HR 69, longest pause 1.9 seconds. Echo EF 50%. No need for PPM at this time. Cardiology signing off. Reconsult PRN. Follow-up as outpt with established medical care administrator at [facility]. (2) CAD (coronary artery disease) Current Visit: Yes Status: Chronic Pt reports hx of PCI 2-3 years ago at [facility]. Denies chest pain. Troponins negative x 3. ASA, Statin. No BB due to bradycardia. Qualifiers: Coronary Disease-Associated Artery/Lesion type: [place] artery [place] vs. transplanted heart: [place] heart Associated angina: without angina Qualified Code(s): I25.10 - Atherosclerotic heart disease of [place] coronary artery without angina pectoris (3) Atrial fibrillation Current Visit: Yes Status: Chronic Appears to be maintaining SR on Amiodarone. Anticoagulated on Coumadin, INR 1.7. Qualifiers: Atrial fibrillation type: unspecified Qualified Code(s): I48.91 - Unspecified atrial fibrillation (4) Hypertension Current Visit: Yes Status: Acute Better controlled on Norvasc. Qualifiers: Hypertension type: essential hypertension Qualified Code(s): I10 - Essential (primary) hypertension (5) Carotid stenosis Current Visit: Yes Status: Acute Carotid dopplers reveal severe bilateral 60-79% stenosis. Vascular was consulted per primary team. Qualifiers: Laterality: bilateral Qualified Code(s): I65.23 - Occlusion and stenosis of bilateral carotid arteries Discussion w patient/family: The assessment and plan as outlined above was discussed with the patient and/or family members who expressed understanding and agreement. All questions were answered. Thank you for involving us in the care of your patient. Please call with any questions. I will discuss all the above with Dr. Dickson and make changes as necessary. Subjective Principal diagnosis: bradycardia Interval history: Pt denies any dizziness overnight. 24 hour tele AVG HR 69, longest pause 1.9 seconds. Objective Vital Signs, Last 4 Hours Temp Pulse Resp BP Pulse Ox 04/20/17 08:02 98.8 F 74 16 138/76 93 Vital Signs Temp Pulse Resp BP Pulse Ox 04/20/17 08:02 98.8 F 74 16 138/76 93 04/20/17 04:33 98.3 F 74 16 120/57 95 04/19/17 23:58 98.1 F 68 16 154/64 96 04/19/17 19:28 98.8 F 70 16 144/57 94 04/19/17 15:14 98 F 69 18 177/68 95 04/19/17 10:42 98.7 F 71 18 149/66 94 Intake and Output 04/19/17 04/20/17 04/20/17 23:59 07:59 15:59 Intake Total 120 / 120 360 / 360 Output Total 350 / 350 600 / 600 Balance -230 / -230 -600 / -600 360 / 360 Intake: Oral 120 / 120 360 / 360 Output: Urine 350 / 350 600 / 600 Other: Meal Dinner Breakfast Percent of Meal Consumed 30% 95% Weight 69.3 kg Patient Weight 04/20/17 23:59 Weight 69.3 kg General: Conversant, No Apparent Distress HEENT: Atraumatic, Normocephaly, Mucus Membranes Moist Neck: No JVD, Normal carotid pulses Cardiac: Reg Rate and Rhythm, Normal S1 and S2, No Murmur Lungs: Normal Breath Sounds, No Wheeze, Rales, Rhonchi Neuro: Alert and responsive, No focal deficits noted Abdomen: Soft, Non-Tender Skin: No rashes noted on visualized skin Musculoskeletal: No Chest Wall Tenderness Extremities: No Clubbing, No Cyanosis, No Edema, Normal Pulses Results 04/20/17 05:45 04/20/17 05:45 Lab Results 04/20/17 04/20/17 04/20/17 05:45 05:45 05:45 WBC 6.4 Hgb 11.4 L Hct 36.3 L Plt Count 106 L INR 1.7 Sodium 140 Potassium 3.9 Chloride 112 H Carbon Dioxide 23 BUN 22 Creatinine 1.61 H Glucose 106 H Calcium 8.6 Magnesium 2.0 TSH 0.694 Short CBC 04/20/17 Range/Units 05:45 WBC 6.4 (4.3-11.1) K/mcL Hgb 11.4 L (12.9-16.9) g/dL Hct 36.3 L (37.5-50.1) % Plt Count 106 L (140-400) K/mcL Neutrophils # 4.3 (1.6-8.9) K/mcL BMP 04/20/17 Range/Units 05:45 Sodium 140 (136-145) mEq/L Potassium 3.9 (3.5-4.5) mEq/L Chloride 112 H (98-109) mEq/L Carbon Dioxide 23 (19-29) mEq/L BUN 22 (8-26) mg/dL Creatinine 1.61 H (0.72-1.25) mg/dL Glucose 106 H (70-99) mg/dL Calcium 8.6 (8.6-10.8) mg/dL Active Medications Acetaminophen (Tylenol) 650 mg PO Q6HR PRN PRN Reason: Mild Pain (1-3) Stop: 10/17/17 15:12 Last Admin: 04/19/17 17:24 Dose: 650 mg Amiodarone HCl (Cordarone) 100 mg PO DAILY PENDING SALE TO [facility] Stop: 10/18/17 09:01 Last Admin: 04/19/17 08:20 Dose: 100 mg Amlodipine Besylate (Norvasc) 5 mg PO DAILY PENDING SALE TO [facility] PRN Reason: Protocol Stop: 10/20/17 09:01 Aspirin (Aspirin) 81 mg PO DAILY PENDING SALE TO [facility] Stop: 10/18/17 09:01 Last Admin: 04/19/17 08:20 Dose: 81 mg Ferrous Sulfate (Ferrous Sulfate) 325 mg PO DAILY PENDING SALE TO [facility] Stop: 10/18/17 09:01 Last Admin: 04/19/17 08:20 Dose: 325 mg Hydralazine HCl (Hydralazine) 10 mg IVP Q6HR PRN PRN Reason: sbp >150 Stop: 10/17/17 20:19 Last Admin: 04/19/17 15:50 Dose: 10 mg Naloxone HCl (Narcan) 0.4 mg IVP Q2MIN PRN PRN Reason: Opioid Reversal Stop: 10/17/17 15:12 Pharmacy Profile Note (Patient Taking Own Medication) 1 each PO DAILY PENDING SALE TO [facility] Stop: 10/18/17 09:01 Last Admin: 04/19/17 08:21 Dose: 1 each Rosuvastatin Calcium (Crestor) 20 mg PO DAILY PENDING SALE TO [facility] Stop: 10/18/17 09:01 Last Admin: 04/19/17 08:19 Dose: 20 mg Warfarin Sodium (Coumadin Perpt) 1 each PO DAILY@1800 PRN PRN Reason: SEE COMMENTS Stop: 10/19/17 18:01 - Imaging and Cardiology Echo: report reviewed - EKG Interpretation EKG results cardiology: other (24 hour tele AVG HR 69, SR, no significant pauses or arrhythmias.) Consult Discharge Plan - Plan Referrals: Kane Phillips MD [Primary Care Provider] -
[2017-04-20] MEDS: *HR* Amiodarone 200 MG TABLET PO SCH (10:15)
[2017-04-20] MEDS: Aspirin 81 MG TAB.CHEW PO SCH (10:16)
[2017-04-20] MEDS: AMLODIPINE BESYLATE PO SCH (10:37)
[2017-04-20] MEDS: BENAZEPRIL PO SCH (10:37)
--- NOTE | 2017-04-20 11:45 | Discharge Summary ---
Date of Encounter: 04/20/17 Time of Encounter: 11:43 - Discharge Diagnosis (1) Bradycardia Priority: Primary Status: Resolved (2) Syncope Priority: Primary Status: Resolved Qualifiers: Syncope type: unspecified Qualified Code(s): R55 - Syncope and collapse (3) Anemia Priority: Secondary Status: Acute Qualifiers: Anemia type: unspecified type Qualified Code(s): D64.9 - Anemia, unspecified (4) Atrial fibrillation Priority: Secondary Status: Chronic Qualifiers: Atrial fibrillation type: unspecified Qualified Code(s): I48.91 - Unspecified atrial fibrillation (5) DVT prophylaxis Priority: Secondary Status: Acute (6) Hypertension Priority: Secondary Status: Chronic Qualifiers: Hypertension type: essential hypertension Qualified Code(s): I10 - Essential (primary) hypertension (7) CAD (coronary artery disease) Priority: Secondary Status: Chronic Qualifiers: Coronary Disease-Associated Artery/Lesion type: [place] artery [place] vs. transplanted heart: [place] heart Associated angina: without angina Qualified Code(s): I25.10 - Atherosclerotic heart disease of [place] coronary artery without angina pectoris (8) Carotid stenosis Priority: Secondary Status: Acute Qualifiers: Laterality: bilateral Qualified Code(s): I65.23 - Occlusion and stenosis of bilateral carotid arteries - Discharge Medications Prescriptions: amLODIPine [Norvasc] 5 mg PO DAILY #30 tablet Home Medications: Acetaminophen [Tylenol] 1,000 mg PO Q6HR 04/17/17 [History] Amiodarone [Cordarone] 100 mg PO DAILY 04/17/17 [History] Amlodipine Besylate/Benazepril [Lotrel 5-20 mg Capsule] 1 tab PO DAILY 04/17/17 [History] Aspirin 81 mg PO DAILY 04/17/17 [History] Ferrous Sulfate [Iron] 325 mg PO DAILY 04/17/17 [History] Rosuvastatin Calcium [Crestor] 20 mg PO DAILY 04/17/17 [History] Warfarin [Coumadin] 2 mg PO 1800 04/17/17 [History] amLODIPine [Norvasc] 5 mg PO DAILY #30 tablet 04/20/17 [Rx] Allergies/Adverse Reactions: Allergies No Known Allergies Allergy (Verified 03/10/16 15:01) Procedures/tests Complete & Pending: Procedures Performed prior 72 hours Category Date Time Status ECG 12 lead ECG [ECG] Routine Y 04/18/17 03:59 Completed Date of admission: 04/18/17 17:30 Primary care physician: Kane Phillips MD Consults: 04/19/17 08:41 Consult to Vascular Surgery [CONS] Routine Consulting Provider: Vascular Surgery Marixa Reason for Consult: Severe Bilateral Carotid stenosis Call Completed: Yes Discharging clinician: Gricel Garza Anticipated date of discharge: 04/20/17 - Patient Status Disposition: Home, Self-Care Condition: Good Functional capacity at discharge: independent ambulation Overall status at discharge: patient is back to baseline - Discharge Instructions Follow Up With: Kane Phillips MD [Primary Care Provider] - 04/27/17 2:15 pm (Please follow up as schedule..) Additional Instructions: Please follow up with your primary care physician within one week after your discharge from the hospital. Please follow up with cardiology within one week after your discharge from the hospital. Your home dose of Metoprolol has been discontinued. Norvasc 5mg once a day as needed for SBP>150 has been added to your home medications. Please closely monitor your blood pressure and take this medication as needed. Please resume all your home medications as prescribed by your primary care physician. Please continue your appointments with the coumadin clinic. - Diet and Activity Activity: resume usual activities as tolerated Diet: low salt diet Hospital course: Mr. Dave is a 81 year old male with PMH of Afib on anticoagulation, HTN, HLD, CAD, CKD stage III who was admitted for management of syncope/dizziness. Pt was noted to be bradycardic due to which his BB dose was discontinued. Cardiology was consulted for a concern for PPM placement. Pt;s bradycardia and dizziness resolved after discontinuation of BB. He was noted to have severe carotid stenosis bilaterally due to which vascular surgery was consulted. He was also noted to be hypertensive for which Norvasc 5mg PO was added in addition to his home medications. Pt is hemodynamically stable but needs a vascular surgery consultation prior to his discharge. If pt is cleared by vascular surgery, he can be discharged to home today. Patient and family demonstrate understanding of his diagnosis and agree with the discharge care and plan. - Time Spent with Patient Total time spent providing and/or coordinating discharge services: Greater than 30 minutes - Constitutional Vitals: Temp Pulse Resp BP Pulse Ox 98.8 F 74 16 138/76 93 04/20/17 08:02 04/20/17 08:02 04/20/17 08:02 04/20/17 08:02 04/20/17 08:02 General appearance: Present: A&O X 3, no acute distress, answers questions appropriately - Head Head exam: Present: atraumatic, normocephalic - Eye Eye exam: Present: normal appearance, conjuntiva pink, sclera anicteric - Respiratory Respiratory exam: Present: CTAB. Absent: respiratory distress, wheezes - Cardiovascular Cardiovascular exam: Present: RRR, +S1, +S2. Absent: diastolic murmur, gallop, rubs, systolic murmur - GI/Abdominal GI/Abdominal exam: Present: normal bowel sounds, soft, no peritoneal signs. Absent: distended, tenderness - Extremities Exam Extremities exam: Present: warm, radial pulses palpable and symetrical. Absent : calf tenderness, pedal edema - Neurological Exam Neurological exam: Present: alert, oriented X3 - Psychiatric Psychiatric exam: Present: normal affect, normal mood
[2017-04-20] MEDS ORDERED: Aminoglycoside Consult 1 EACH MC ONE (12:00)
[2017-04-20 17:46] VITALS: BP 140/65
[2017-04-20] MEDS ORDERED: *HR* Warfarin 2 MG TABLET PO SCH (18:00)
--- NOTE | 2017-04-20 18:12 | Vascular/Endovasc Consult Note ---
Date of Encounter: 04/20/17 Time of Encounter: 17:30 Assessment and Plan (1) Carotid stenosis, bilateral Current Visit: Yes Status: Acute The patient was found to have 60-79% bilateral internal carotid artery tenosis. The pathophysiology and natural history of carotid stenosis was discussed with the patient and all questions were answered. The patient was recently admitted with dizziness. This was determined to be secondary to his antihyertensives which have now been decreased. He denies symptoms of CVA, TIA or amaurosis fugax. He was instructed to seek immediate medical attention if symptoms occur. He will follow-up in clinic in 6 months with a repeat carotid duplex. He will continue with daily ASA. (2) Atrial fibrillation Current Visit: Yes Status: Chronic Qualifiers: Atrial fibrillation type: unspecified Qualified Code(s): I48.91 - Unspecified atrial fibrillation (3) Hypertension Current Visit: Yes Status: Chronic Qualifiers: Hypertension type: essential hypertension Qualified Code(s): I10 - Essential (primary) hypertension (4) CAD (coronary artery disease) Current Visit: Yes Status: Chronic Qualifiers: Coronary Disease-Associated Artery/Lesion type: [place] artery [place] vs. transplanted heart: [place] heart Associated angina: without angina Qualified Code(s): I25.10 - Atherosclerotic heart disease of [place] coronary artery without angina pectoris - History of Present Illness History of present illness: Mr. Dave is a 81 year old male Past Med Surg Social Fam HX - Past Medical History Medical history: aortic aneurysm, atrial fibrillation, cancer, coronary artery disease, hypertension, myocardial infarction Psychiatric history: no psych history - Past Surgical History Surgical History: angioplasty/stent - Social History Smoking Status: Never smoker Smokeless Tobacco Status: No Alcohol use: occasionally Drug use: none - Family History Mother Hx Family Cardiac Disorders: Yes Father Hx Family Respiratory Disorders: Yes Medications and Allergies Acetaminophen [Tylenol] 1,000 mg PO Q6HR 04/17/17 [History] Amiodarone [Cordarone] 100 mg PO DAILY 04/17/17 [History] Amlodipine Besylate/Benazepril [Lotrel 5-20 mg Capsule] 1 tab PO DAILY 04/17/17 [History] Aspirin 81 mg PO DAILY 04/17/17 [History] Ferrous Sulfate [Iron] 325 mg PO DAILY 04/17/17 [History] Rosuvastatin Calcium [Crestor] 20 mg PO DAILY 04/17/17 [History] Warfarin [Coumadin] 2 mg PO 1800 04/17/17 [History] amLODIPine [Norvasc] 5 mg PO DAILY #30 tablet 04/20/17 [Rx] Allergies No Known Allergies Allergy (Verified 03/10/16 15:01) All Systems Review: A 10-system review of systems was performed and is negative for pertinent findings except as documented above in the HPI. Exam Vital Signs, Last 4 Hours Temp Pulse Resp BP Pulse Ox 04/20/17 17:45 79 140/65 95 04/20/17 15:48 98.2 F 74 16 173/70 95 Consult Discharge Plan - Plan Additional Instructions: Please follow up with your primary care physician within one week after your discharge from the hospital. Please follow up with cardiology within one week after your discharge from the hospital. Your home dose of Metoprolol has been discontinued. Norvasc 5mg once a day as needed for SBP>150 has been added to your home medications. Please closely monitor your blood pressure and take this medication as needed. Please resume all your home medications as prescribed by your primary care physician. Please continue your appointments with the coumadin clinic. Referrals: Kane Phillips MD [Primary Care Provider] - 04/27/17 2:15 pm (Please follow up as schedule..) Prescriptions: amLODIPine [Norvasc] 5 mg PO DAILY #30 tablet
== END 2017-04-20 18:46 | disposition home or self-care (01) | DRG 68 ==
LOC: EMEROO 12:08 → 2ANU 12:08
PROVIDERS: ADMIT Internal Medicine; ATTEND Internal Medicine

== ENCOUNTER 2017-11-07 13:42 | Inpatient (IN) ==
[2017-11-07] MEDS ORDERED: Furosemide 40 MG/4 ML VIAL IVP ONE ×2 (14:03→16:05)
--- NOTE | 2017-11-07 14:10 | Emergency Department Note ---
Disposition Clinical Impression: Acute exacerbation of congestive heart failure Qualifiers: Congestive heart failure type: unspecified congestive heart failure type Qualified Code(s): I50.9 - Heart failure, unspecified CKD (chronic kidney disease) Qualifiers: Chronic kidney disease stage: unspecified stage Qualified Code(s): N18.9 - Chronic kidney disease, unspecified Disposition: Admitted As Inpatient Condition: Good Referrals: Kane Phillips MD [Primary Care Provider] - Forms: ED Satisfaction Letter General Adult HPI - General Chief complaint: ED Shortness of Breath/Dyspnea Stated complaint: DI,Swelling Time Seen by Provider: 11/07/17 13:47 Source: patient Limitations: no limitations Nursing Notes Reviewed: Yes Vital Signs Reviewed: Yes - History of Present Illness HPI Narrative: 81-year-old male who reports that since July he has had progressively worsening shortness of breath. He then reports over the last few days he has developed new onset bilateral lower extremity edema and worsening shortness of breath. He went to see a fitting room supervisor yesterday who said this seems to be his heart and told to come the emergency Department but he went home instead. He presented today with worsening of his symptoms. He has had a history of A. fib been on amiodarone. He is also on Coumadin. He has had stents in his heart placed couple of years ago. He had an echocardiogram in April which showed 50% EF and mild diastolic dysfunction. He admits to mild cough which is not productive. He is on chronic 2 L of oxygen at all times at home. He states he does not know why he is. He denies been on a "water pill" Pain Scale: 0 Improves with: nothing Worsens with: nothing Associated symptoms: Reports: denies other symptoms Treatments Prior to Arrival: none - Related Data Home Medications Medication Instructions Recorded Confirmed Acetaminophen [Tylenol] 1,000 mg PO Q6HR 04/17/17 04/17/17 Amiodarone [Cordarone] 100 mg PO DAILY 04/17/17 04/17/17 Amlodipine Besylate/Benazepril 1 tab PO DAILY 04/17/17 04/17/17 [Lotrel 5-20 mg Capsule] Aspirin 81 mg PO DAILY 04/17/17 04/17/17 Ferrous Sulfate [Iron] 325 mg PO DAILY 04/17/17 04/17/17 Rosuvastatin Calcium [Crestor] 20 mg PO DAILY 04/17/17 04/17/17 Warfarin [Coumadin] 2 mg PO 1800 04/17/17 04/17/17 Previous Rx's Medication Instructions Recorded amLODIPine [Norvasc] 5 mg PO DAILY #30 tablet 04/20/17 Allergies Allergy/AdvReac Type Severity Reaction Status Date / Time No Known Allergies Allergy Verified 03/10/16 15:01 All systems ED: reviewed and negative except as stated. Constitutional: Denies: fever Eyes: Denies: vision change Cardiovascular: Denies: chest pain Respiratory: Reports: cough, dyspnea Gastrointestinal: Denies: abdominal pain Genitourinary: Denies: dysuria Musculoskeletal: Denies: back pain Integumentary: Denies: rash Endocrine: Reports: fatigue Past Medical History - Past Medical History Medical history: Reports: aortic aneurysm, atrial fibrillation, cancer, coronary artery disease, hypertension, myocardial infarction Surgical history: Reports: angioplasty/stent Psychiatric history: Reports: no psych history - Social History Smoking Status: Never smoker Smokeless Tobacco Status: No Alcohol use: Reports: occasionally Drug use: Reports: none Physical Exam - General Limitations: no limitations General appearance: alert, in no apparent distress - Head Head exam: atraumatic - Eye Eye exam: Present: normal appearance, PERRL - ENT ENT exam: normal exam, normal oropharynx - Neck Neck exam: Present: normal inspection - Chest Chest inspection: Present: normal inspection - Respiratory Respiratory exam: Present: normal lung sounds bilaterally. Absent: respiratory distress - Cardiovascular Cardiovascular exam: Present: regular rate, normal rhythm - Abdominal Exam Abdominal exam: Present: soft, Non-Tender - Extremities Exam Extremities exam: Present: other (3+ pitting edema equal bilaterally. No warmth or redness or signs of cellulitis) - Back Exam Back exam: Present: normal inspection - Neurological Exam Neurological exam: Present: alert, oriented X3 - Psychiatric Psychiatric exam: Present: normal affect, normal mood - Skin Skin exam: Present: warm, dry Course Course Narrative: CHF exacerbation is present clinically w/ LE edema and hypoxia and CXR findings. Negative troponin. No acute EKG changes. Will give lasix and admit. No respiratory distress. Vital Signs Temperature 97.7 F 11/07/17 13:43 Pulse Rate 70 11/07/17 13:43 Respiratory Rate 20 11/07/17 13:43 Blood Pressure 151/68 11/07/17 13:43 O2 Sat by Pulse Oximetry 85 11/07/17 13:43 Temperature 97.7 F 11/07/17 13:43 Pulse Rate 62 11/07/17 15:16 Respiratory Rate 18 11/07/17 15:16 Blood Pressure 156/77 11/07/17 15:16 O2 Sat by Pulse Oximetry 98 11/07/17 15:16 Oxygen Delivery Oxygen Delivery Nasal Cannula Medical Decision Making - Medical Records Medical records reviewed: Yes I reviewed the patient's medical records. - Lab Data Lab results reviewed: Yes I reviewed the patient's lab results. Result diagrams: 11/07/17 14:15 11/07/17 14:15 Lab Results 11/07/17 11/07/17 11/07/17 Range/Units 14:15 14:15 14:15 WBC 6.8 (4.3-11.1) K/mcL RBC 3.43 L (4.19-5.50) M/mcL Hgb 8.9 L (12.9-16.9) g/dL Hct 30.6 L (37.5-50.1) % MCV 89.2 (83.0-100.0) fL MCH 25.9 L (28.0-33.3) pg MCHC 29.1 L (31.6-35.5) g/dL RDW 15.9 H (11.5-14.5) % Plt Count 124 L (140-400) K/mcL MPV 10.1 (9.4-12.4) fL Immature Gran % 0.4 (0-4) % Seg Neutrophils % 84.2 % Lymphocytes % 7.5 % Monocytes % 6.3 % Eosinophils % 1.5 % Basophils % 0.1 % Neutrophils # 5.7 (1.6-8.9) K/mcL Lymphocytes # 0.5 L (0.6-4.6) K/mcL Monocytes # 0.4 (0.0-1.3) K/mcL Eosinophils # 0.1 (0.0-0.6) K/mcL Basophils # 0.0 (0.0-0.2) K/mcL PT (9.4-12.1) Seconds INR APTT (26.0-36.0) Seconds Sodium 140 (136-145) mEq/L Potassium 3.7 (3.5-5.1) mEq/L Chloride 108 H (98-107) mEq/L Carbon Dioxide 26 (23-29) mEq/L BUN 19 (8-23) mg/dL Creatinine 1.72 H (0.70-1.30) mg/dL Est GFR ( Amer) 46 L (> 60) Est GFR (Non-Af Amer) 38 L (> 60) BUN/Creatinine Ratio 11 (6-26) Glucose 125 H (70-105) mg/dL Calculated Osmolality 294 (280-300) Calcium 8.4 L (8.6-10.3) mg/dL Troponin I < 0.03 (< 0.04) ng/mL B-Natriuretic Peptide (Less than 100) pg/mL 11/07/17 11/07/17 Range/Units 14:15 14:15 WBC (4.3-11.1) K/mcL RBC (4.19-5.50) M/mcL Hgb (12.9-16.9) g/dL Hct (37.5-50.1) % MCV (83.0-100.0) fL MCH (28.0-33.3) pg MCHC (31.6-35.5) g/dL RDW (11.5-14.5) % Plt Count (140-400) K/mcL MPV (9.4-12.4) fL Immature Gran % (0-4) % Seg Neutrophils % % Lymphocytes % % Monocytes % % Eosinophils % % Basophils % % Neutrophils # (1.6-8.9) K/mcL Lymphocytes # (0.6-4.6) K/mcL Monocytes # (0.0-1.3) K/mcL Eosinophils # (0.0-0.6) K/mcL Basophils # (0.0-0.2) K/mcL PT 20.2 H (9.4-12.1) Seconds INR 1.9 APTT 34.3 (26.0-36.0) Seconds Sodium (136-145) mEq/L Potassium (3.5-5.1) mEq/L Chloride (98-107) mEq/L Carbon Dioxide (23-29) mEq/L BUN (8-23) mg/dL Creatinine (0.70-1.30) mg/dL Est GFR ( Amer) (> 60) Est GFR (Non-Af Amer) (> 60) BUN/Creatinine Ratio (6-26) Glucose (70-105) mg/dL Calculated Osmolality (280-300) Calcium (8.6-10.3) mg/dL Troponin I (< 0.04) ng/mL B-Natriuretic Peptide 941 H (Less than 100) pg/mL - Radiology Data Radiology results reviewed: Yes I reviewed the patient's radiology results. - EKG Data EKG #1 EKG attestation: Yes I reviewed and interpreted this EKG. Interpretation: nonspecific ST-T wave changes, other (Atrial fibrillation w rate of 67. No ST deviation.) Attestation Statement - Attestation Attestation: I, Ruiz Sales DO, examined this patient [id number] and my medical decision-making was reviewed with (Dr. Cabrera Spivey, Resident Physician. I agree with the documented findings, disposition and treatment plan as described except to the extent set forth below. Please see my progress notes for details. 81-year-old male seen and examined in conjunction with the resident. Presents to emergency room with fluid overload shortness of breath is getting worse with exertion. Patient is having symptoms coming on over the last several days. Patient was seen by his fitting room supervisor yesterday and they recommended coming to the hospital for evaluation. He declined at that time. Physical exam shows a well-appearing male in no specific respiratory distress at this time. His pulse ox is normal at 2 L of oxygen has been titrated up and down between 4 L and 2 L here in the emergency room. He typically does not use oxygen all the time home. Lungs are clear but there is intermittent crackles noted in the base of the lungs at this time. Heart is regular. Abdomen soft nontender nondistended with no guarding no rigidity no peritoneal like symptoms. He does have a recent/historic aneurysm that required stenting. He also has cardiac disease at baseline. Currently denying chest pain shortness of breath headache vision changes nausea vomiting or diarrhea fevers or chills while resting in the bed. He denied any symptoms prior to coming in. He does have significant + 3 pitting edema to the mid thigh bilaterally in the lower extremities. He has no signs of skin deterioration or breakdown. Patient is otherwise stable. Patient will be provided Lasix and had detailed evaluation for congestive heart failure completed. He has not had an echo or stress test performed at this facility. He does not follow up with a coremaker at this facility. Patient is otherwise resting comfortably in the bed and will require admission after this workup is completed. See detailed documentation of the physical exam, medical intervention, medical decision-making and disposition and the resident physician's note. Family informed of recommendation for admission the couple does plan clinical care provider this patient during the treatment course.
[2017-11-07 14:35] LABS: Basophils % 0.1 %; Eosinophils # 0.1 K/mcL (0.0-0.6); Eosinophils % 1.5 %; Hematocrit 30.6 % (37.5-50.1); Hemoglobin 8.9 g/dL (12.9-16.9); Immature Granulocytes % 0.4 % (0-4); Lymphocytes # 0.5 K/mcL (0.6-4.6); Lymphocytes % 7.5 %; Mean Corpuscular HGB Conc 29.1 g/dL (31.6-35.5); Mean Corpuscular Hemoglobin 25.9 pg (28.0-33.3); Mean Corpuscular Volume 89.2 fL (83.0-100.0); Mean Platelet Volume 10.1 fL (9.4-12.4); Monocytes # 0.4 K/mcL (0.0-1.3); Monocytes % 6.3 %; Neutrophils # 5.7 K/mcL (1.6-8.9); Platelet Count 124 K/mcL (140-400); Red Blood Count 3.43 M/mcL (4.19-5.50); Red Cell Distribution Width 15.9 % (11.5-14.5); Segmented Neutrophils % 84.2 %
[2017-11-07 14:55] LABS: Calcium 8.4 mg/dL (8.6-10.3); Potassium 3.7 mEq/L (3.5-5.1)
[2017-11-07 15:08] LABS: INR 1.9; Prothrombin Time 20.2 Seconds (9.4-12.1)
[2017-11-07 15:10] LABS: Activated Partial Thrombo Time 34.3 Seconds (26.0-36.0)
[2017-11-07 16:20] LABS: Bilirubin,Urine Negative (Negative); Blood,Urine Negative (Negative); Clarity,Urine Clear (Clear); Color,Urine Yellow (Yellow); Glucose,Urine (UA) Normal (Normal); Ketones,Urine Negative (Negative); Leukocyte Esterase,Urine Moderate (Negative); Nitrite,Urine Negative (Negative); Protein,Urine 30 mg/dL (Neg-Trace); Specific Gravity,Urine 1.022 (1.010-1.025); Urobilinogen,Urine Normal (Normal)
[2017-11-07 16:21] LABS: Bacteria,Urine None Seen per hpf (None-Few); Hyaline Casts,Urine None Seen per lpf (None-Few); Squamous Epithelial Cell,Urine Many per lpf (None-Few); WBC,Urine 30-50 per hpf (0-3)
[2017-11-07] MEDS ORDERED: Naloxone 0.4 MG/ML INJ IVP PRN (17:53)
[2017-11-07] MEDS ORDERED: Ondansetron ODT 4 MG TAB.RAPDIS SL PRN (18:00)
[2017-11-07] MEDS ORDERED: Acetaminophen 325 MG TABLET PO PRN (18:00)
[2017-11-07] MEDS ORDERED: *HR* HYDROcodone/Acet 5/325 mg TABLET PO PRN (18:00)
[2017-11-07] MEDS ORDERED: Mag Hydrox/Al Hydrox/Simeth 30 ML UDC PO PRN (18:00)
[2017-11-07] MEDS ORDERED: *HR* Morphine 2 MG/ML SYRINGE IVP PRN (18:00)
--- NOTE | 2017-11-07 18:37 | Internal Med History&Physical ---
Date of Encounter: 11/08/17 Time of Encounter: 17:00 Assessment and Plan (1) Acute exacerbation of congestive heart failure Current visit: Yes Status: Acute ASSESSMENT: - SOB due to *CHF exacerbation R/O ischemia URTI *Bronchitis *R/O cardiac ischemia *Pneumonia PLAN: - CPP x 1 more, 8 hr after the 1st one - EKG in AM - ASA - O2 to keep SpO2 > 92% - Lasix 40 mg IV BID - Aerosols UD q 4 hr - UA - 2D Echo - CBCD, BMP in AM - Fasting lipids - Tylenol 650 mg PO q 4-6 hr PRN pain - Home meds Qualifiers: Congestive heart failure type: unspecified congestive heart failure type Qualified Code(s): I50.9 - Heart failure, unspecified (2) Atrial fibrillation Current visit: No Status: Chronic Continue home medication and start patient on Coumadin, obtain INR. Qualifiers: Atrial fibrillation type: unspecified Qualified Code(s): I48.91 - Unspecified atrial fibrillation (3) CAD (coronary artery disease) Current visit: No Status: Chronic Continue home medication. Qualifiers: Coronary Disease-Associated Artery/Lesion type: [place] artery [place] vs. transplanted heart: [place] heart Associated angina: without angina Qualified Code(s): I25.10 - Atherosclerotic heart disease of [place] coronary artery without angina pectoris (4) CKD (chronic kidney disease) Current visit: Yes Status: Acute Creatinine at baseline, continue to monitor. Qualifiers: Chronic kidney disease stage: unspecified stage Qualified Code(s): N18.9 - Chronic kidney disease, unspecified (5) Anemia Current visit: No Status: Acute Most likely secondary to chronic kidney disease, obtain iron panel, transfuse for hemoglobin less than 7, target hemoglobin is 10-11, may benefit from starting Aricept routinely stimulating agents. Qualifiers: Anemia type: unspecified type Qualified Code(s): D64.9 - Anemia, unspecified (6) DVT prophylaxis Current visit: No Status: Acute The patient on chronic anticoagulation with Coumadin. Internal Medicine - H&P: HPI Chief complaint: SOB , EDEMA Plans for Post Hospital Care: Home History of present illness: Mr. Dave is a 81 year old male with PMH OF A. fib on amiodarone and Coumadin and H/O CAD stents placement couple of years ago who reports progressively worsening shortness of breath associated new onset bilateral lower extremity edema as well as mild nonproductive cough. He had an echocardiogram in April which showed 50% EF and mild diastolic dysfunction AND He is on chronic 2 L of oxygen at all times at home. He chest x-ray was suggestive of congestive heart failure and he was admitted for further evaluation and management. Past Med Surg Social Fam HX - Past Medical History Medical history: aortic aneurysm, atrial fibrillation, cancer, coronary artery disease, hypertension, myocardial infarction Psychiatric history: no psych history - Past Surgical History Surgical History: angioplasty/stent - Social History Smoking Status: Never smoker Smokeless Tobacco Status: No Alcohol use: occasionally Drug use: none - Family History Mother Hx Family Cardiac Disorders: Yes Father Hx Family Respiratory Disorders: Yes Internal Medicine - H&P: Meds Acetaminophen [Tylenol] 1,000 mg PO Q6HR 04/17/17 [History] Amiodarone [Cordarone] 100 mg PO DAILY 04/17/17 [History] Amlodipine Besylate/Benazepril [Lotrel 5-20 mg Capsule] 1 tab PO DAILY 04/17/17 [History] Aspirin 81 mg PO DAILY 04/17/17 [History] Ferrous Sulfate [Iron] 325 mg PO DAILY 04/17/17 [History] Rosuvastatin Calcium [Crestor] 20 mg PO DAILY 04/17/17 [History] Warfarin [Coumadin] 2 mg PO QPM 04/17/17 [History] amLODIPine [Norvasc] 5 mg PO DAILY #30 tablet 04/20/17 [Rx] 3 Allergy/AdvReac Type Severity Reaction Status Date / Time No Known Allergies Allergy Verified 03/10/16 15:01 All Systems PM: A 10-system review of systems was performed and is negative for pertinent findings except as documented above in the HPI. - Constitutional Constitutional: no chills, no fever(s), no night sweats - Cardiovascular Cardiovascular ROS IM: dyspnea, dyspnea on exertion, edema, irregular heart rhythm - Respiratory Respiratory: cough, dyspnea, no wheezing, no excessive phlegm production - Gastrointestinal Gastrointestinal: no abdominal pain, no diarrhea, no hematemesis, no hematochezia, no melena, no nausea, no vomiting - Neurological Neurological ROS: no confusion, no convulsions, no focal weakness, no numbness, no tingling, no tremor(s) - Constitutional Vitals: Temp Pulse Resp BP Pulse Ox 97.9 F 61 16 157/66 97 11/07/17 17:07 11/07/17 17:07 11/07/17 17:07 11/07/17 17:07 11/07/17 17:49 General appearance: Present: A&O X 3 - Head Head exam: Present: atraumatic, normocephalic - Respiratory Respiratory exam: Present: rales. Absent: accessory muscle use, wheezes - Cardiovascular Cardiovascular exam: Present: irregular rhythm, RRR, +S1, +S2. Absent: diastolic murmur, gallop, rubs, systolic murmur - GI/Abdominal GI/Abdominal exam: Present: normal bowel sounds, soft, no peritoneal signs. Absent: distended, tenderness - Extremities Exam Extremities exam: Present: pedal edema, warm, radial pulses palpable and symmetrical. Absent: calf tenderness, cyanotic - Neurological Exam Neurological exam: Present: CN II-XII intact, oriented X3, no focal deficits. Absent: pronater drift, facial droop, speech deficit Internal Med - H&P Results - Labs CBC & Chem 7: 11/08/17 00:48 11/08/17 00:48
[2017-11-07] MEDS: *HR* Warfarin 2 MG TABLET PO SCH (18:56)
[2017-11-07] MEDS: Furosemide 40 MG/4 ML VIAL IVP SCH (18:56)
[2017-11-08 01:12] LABS: Basophils % 0.2 %; Eosinophils # 0.1 K/mcL (0.0-0.6); Eosinophils % 2.3 %; Hematocrit 26.6 % (37.5-50.1); Hemoglobin 7.8 g/dL (12.9-16.9); Immature Granulocytes % 0.3 % (0-4); Lymphocytes # 0.6 K/mcL (0.6-4.6); Lymphocytes % 10.6 %; Mean Corpuscular HGB Conc 29.3 g/dL (31.6-35.5); Mean Corpuscular Hemoglobin 26.1 pg (28.0-33.3); Mean Platelet Volume 9.7 fL (9.4-12.4); Monocytes # 0.5 K/mcL (0.0-1.3); Monocytes % 8.9 %; Neutrophils # 4.6 K/mcL (1.6-8.9); Nucleated Red Blood Cells 0.3 /100 WBC (0); Platelet Count 106 K/mcL (140-400); Red Blood Count 2.99 M/mcL (4.19-5.50); Red Cell Distribution Width 15.9 % (11.5-14.5); Segmented Neutrophils % 77.7 %
[2017-11-08 01:18] LABS: INR 1.9; Prothrombin Time 20.9 Seconds (9.4-12.1)
[2017-11-08 01:21] LABS: Activated Partial Thrombo Time 34.4 Seconds (26.0-36.0)
[2017-11-08 01:33] LABS: Albumin 3.1 g/dL (3.5-5.7); Bilirubin,Direct 0.1 mg/dL (0.0-0.2); Bilirubin,Indirect 0.3 mg/dL (0.0-1.2); Bilirubin,Total 0.4 mg/dL (0.3-1.0); Calcium 7.9 mg/dL (8.6-10.3); Chol/HDL Ratio 2.1 (0-4.9); Magnesium 1.8 mg/dL (1.6-2.6); Phosphorous 3.2 mg/dL (2.7-4.5); Potassium 3.8 mEq/L (3.5-5.1); Total Protein 6.1 g/dL (6.4-8.9)
[2017-11-08 01:45] LABS: Thyroid Stimulating Hormone 2.253 mcIU/mL (0.340-5.600)
[2017-11-08 03:03] LABS: Bilirubin,Urine Negative (Negative); Blood,Urine Negative (Negative); Clarity,Urine Clear (Clear); Color,Urine Yellow (Yellow); Glucose,Urine (UA) Normal (Normal); Ketones,Urine Negative (Negative); Leukocyte Esterase,Urine Negative (Negative); Nitrite,Urine Negative (Negative); Protein,Urine Negative (Neg-Trace); Specific Gravity,Urine 1.016 (1.010-1.025); Urobilinogen,Urine Normal (Normal)
[2017-11-08] MEDS: Furosemide 40 MG/4 ML VIAL IVP SCH ×2 (10:47→18:35)
[2017-11-08] MEDS: Lisinopril 20 MG TABLET PO SCH (10:48)
[2017-11-08] MEDS: *HR* Amiodarone 200 MG TABLET PO SCH (10:48)
[2017-11-08] MEDS: amLODIPine 5 MG TABLET PO SCH (10:48)
[2017-11-08] MEDS: Aspirin 81 MG TAB.CHEW PO SCH (10:48)
[2017-11-08] MEDS: Aspirin Enteric Coated 81 MG Tablet PO SCH (10:48)
[2017-11-08 11:22] LABS: % Iron Saturation 6 % (20-55); Iron 19 mcg/dL (65-175); Transferrin 238 mg/dL (203-362)
--- NOTE | 2017-11-08 13:00 | Internal Med Progress Note ---
Date of Encounter: 11/08/17 Time of Encounter: 07:25 - Assessment and plan (1) Acute exacerbation of congestive heart failure Current Visit: Yes Status: Acute Assessment and plan: Patient reports approximately 2-3 week history of increasing shortness of breath and bilateral lower extremity edema. Patient had stents placed in aorta in November at the [facility]. He reports that he has been in short of breath since that time. Patient has +3-4 pitting edema to bilateral lower extremities and crackles heard in all posterior lung dillard. Patient reports extremity edema is improved over baseline. Patient had an echocardiogram in April, that showed an LVEF of 50%, mild concentric left ventricular hypertrophy, mild LV DD, mild AR. Chest x-ray here demonstrates congestive heart failure. The heart is enlarged on chest x-ray. Repeat chest x-ray shows bibasilar pulmonary opacities, possible superimposed pneumonia or aspiration cannot be excluded. We will continue to monitor. Currently patient has no fever, tachycardia. Continue telemetry. Oxygen, titrate to keep sats above 92%. Lasix 40 mg IV twice a day Nebulizer treatment scheduled Echocardiogram Qualifiers: Congestive heart failure type: diastolic Qualified Code(s): I50.33 - Acute on chronic diastolic (congestive) heart failure (2) CKD (chronic kidney disease) Current Visit: Yes Status: Acute Assessment and plan: Creatinine 2.03, GFR 32. Avoid nephrotoxins. Patient is receiving Lasix for fluid overload from CHF. Qualifiers: Chronic kidney disease stage: stage 3 (moderate) Qualified Code(s): N18.3 - Chronic kidney disease, stage 3 (moderate) (3) Anemia Current Visit: Yes Status: Chronic Assessment and plan: Patient with chronic anemia. Hemoglobin 7.8 today. Iron is low at 19, percent saturation is 6. B12 and folate ordered and pending. Type and screen ordered Transfuse 1 unit PRBCs and redraw H and H after infusion. Ferrous Sulfate 325mg po daily Qualifiers: Anemia type: iron deficiency Qualified Code(s): D50.8 - Other iron deficiency anemias (4) CAD (coronary artery disease) Current Visit: Yes Status: Chronic Assessment and plan: Patient denies chest pain. Continue aspirin, Crestor. Patient is on Coumadin. Qualifiers: Coronary Disease-Associated Artery/Lesion type: [place] artery [place] vs. transplanted heart: [place] heart Associated angina: without angina Qualified Code(s): I25.10 - Atherosclerotic heart disease of [place] coronary artery without angina pectoris (5) Hypertension Current Visit: Yes Status: Chronic Assessment and plan: Chronic. Continue home medications. Qualifiers: Hypertension type: essential hypertension Qualified Code(s): I10 - Essential (primary) hypertension (6) DVT prophylaxis Current Visit: Yes Status: Acute Assessment and plan: Patient is anticoagulated on Coumadin. - Time Spent With Patient less than 15 minutes - Subjective Interval history: Pt was seen and assessed at 0815. Pt reports increasing SOB for almost a year since stent was placed at [facility] for AAA in November. He reports that for the last 2 weeks or so he has had increasing difficulty, worse over the last 2-3 days. He states that he feels "ok". Pt is a non-smoker and denies chest pain, headache, n/v/d, or abdominal pain. He denies dizziness. +3 pitting edema to BLE, pt states is normal and has improved over baseline. - Constitutional Vitals: Temp Pulse Resp BP Pulse Ox 98.2 F 62 18 167/78 96 11/08/17 11:14 11/08/17 11:14 11/08/17 11:14 11/08/17 11:14 11/08/17 11:14 General appearance: Present: cooperative, A&O X 3, pleasant, no acute distress, answers questions appropriately - Head Head exam: Present: atraumatic, normal inspection, normocephalic - Eye Eye exam: Present: normal appearance, conjuntiva pink, sclera anicteric - Neck Neck exam general surgery: Present: supple, trachea midline. Absent: lymphadenopathy, tenderness - Respiratory Respiratory exam: Present: decreased breath sounds, CTAB, rales. Absent: accessory muscle use, chest wall tenderness, respiratory distress, rhonchi, wheezes - Cardiovascular Cardiovascular exam: Present: RRR, +S1, +S2. Absent: diastolic murmur, gallop, rubs, systolic murmur - GI/Abdominal GI/Abdominal exam: Present: normal bowel sounds, soft. Absent: distended, hepatomegaly, tenderness - Extremities Exam Extremities exam: Present: normal capillary refill, warm, radial pulses palpable and symmetrical. Absent: calf tenderness, cyanotic, pedal edema, tenderness - Neurological Exam Neurological exam: Present: alert, oriented X3, no focal deficits. Absent: facial droop, speech deficit - Skin Skin exam: Present: dry, intact, normal color, warm. Absent: rash Internal Medicine: Result - Labs CBC & Chem 7: 11/08/17 00:48 11/08/17 00:48 Labs: Short CBC 11/08/17 Range/Units 00:48 WBC 6.0 (4.3-11.1) K/mcL Hgb 7.8 L (12.9-16.9) g/dL Hct 26.6 L (37.5-50.1) % Plt Count 106 L (140-400) K/mcL Neutrophils # 4.6 (1.6-8.9) K/mcL BMP 11/08/17 00:48 Sodium 140 Potassium 3.8 Chloride 107 Carbon Dioxide 28 BUN 21 Creatinine 2.03 H Glucose 122 H Calcium 7.9 L Cardiac Enzymes 11/07/17 11/08/17 11/08/17 Range/Units 18:47 00:48 10:15 Troponin I < 0.03 < 0.03 < 0.03 (< 0.04) ng/mL Liver Function 11/08/17 Range/Units 00:48 Total Bilirubin 0.4 (0.3-1.0) mg/dL Direct Bilirubin 0.1 (0.0-0.2) mg/dL AST 13 (13-39) Units/L ALT 8 (7-52) Units/L Alkaline Phosphatase 105 H (34-104) Units/L Albumin 3.1 L (3.5-5.7) g/dL Urine 11/08/17 Range/Units 02:40 Urine Color Yellow (Yellow) Urine Clarity Clear (Clear) Urine pH 6.0 (5.0-8.0) pH Units Ur Specific [place] 1.016 (1.010-1.025) Urine Protein Negative (Neg-Trace) mg/dL Urine Glucose (UA) Normal (Normal) mg/dL - ABG Interpretation ABG results: PT/INR, D-dimer PT 20.9 Seconds (9.4-12.1) H 11/08/17 00:48 - Impressions Impressions Chest X-Ray 11/07/17 18:11 IMPRESSION: Findings concerning for congestive heart failure with bilateral pleural effusions. Bibasilar pulmonary opacities are favored to represent atelectasis or edema, although superimposed pneumonia or aspiration would not be excluded. Consider a short interval follow-up. D/ / Jaziel Skelton MD / Jaziel Skelton MD Interpreting Provider: Jaziel Skelton MD Consult Discharge Plan - Plan Referrals: Kane Phillips MD [Primary Care Provider] -
[2017-11-08] MEDS: *HR* Warfarin 2 MG TABLET PO SCH (18:36)
[2017-11-09] MEDS: Aspirin 81 MG TAB.CHEW PO SCH (08:03)
[2017-11-09] MEDS: Furosemide 40 MG/4 ML VIAL IVP SCH ×2 (08:03→17:15)
[2017-11-09] MEDS: *HR* Amiodarone 200 MG TABLET PO SCH (08:03)
[2017-11-09] MEDS: Lisinopril 20 MG TABLET PO SCH (08:03)
[2017-11-09] MEDS: Aspirin Enteric Coated 81 MG Tablet PO SCH (08:04)
[2017-11-09] MEDS: amLODIPine 5 MG TABLET PO SCH (08:04)
[2017-11-09 08:07] LABS: Basophils % 0.2 %; Red Cell Distribution Width 15.9 % (11.5-14.5)
[2017-11-09 08:09] LABS: Eosinophils # 0.1 K/mcL (0.0-0.6); Eosinophils % 2.8 %; Hematocrit 26.6 % (37.5-50.1); Hemoglobin 7.7 g/dL (12.9-16.9); Immature Granulocytes % 0.6 % (0-4); Immature Platelets 3.2 % (1.1-6.1); Lymphocytes # 0.7 K/mcL (0.6-4.6); Lymphocytes % 14.8 %; Mean Corpuscular HGB Conc 28.9 g/dL (31.6-35.5); Mean Corpuscular Hemoglobin 25.5 pg (28.0-33.3); Mean Corpuscular Volume 88.1 fL (83.0-100.0); Mean Platelet Volume 10.1 fL (9.4-12.4); Monocytes # 0.6 K/mcL (0.0-1.3); Monocytes % 12.2 %; Red Blood Count 3.02 M/mcL (4.19-5.50); Segmented Neutrophils % 69.4 %
[2017-11-09 08:15] LABS: Neutrophils # 3.3 K/mcL (1.6-8.9); Platelet Count 98 K/mcL (140-400)
[2017-11-09 08:26] LABS: Potassium 3.3 mEq/L (3.5-5.1)
[2017-11-09] MEDS ORDERED: Ferumoxytol 510 MG in 0.9 % Sodium Chloride 100 ML IVPB ONE (10:00)
--- NOTE | 2017-11-09 10:22 | Internal Med Progress Note ---
Date of Encounter: 11/09/17 Time of Encounter: 08:10 - Assessment and plan (1) Acute exacerbation of congestive heart failure Current Visit: Yes Status: Acute Assessment and plan: Patient reports approximately 2-3 week history of increasing shortness of breath and bilateral lower extremity edema. Patient had stents placed in aorta in November at the [facility]. He reports that he has been in short of breath since that time. Patient has +3 pitting edema to BLE and lungs are diminished throughout. Patient reports extremity edema is improved over baseline. Patient had an echocardiogram in April, that showed an LVEF of 50%, mild concentric left ventricular hypertrophy, mild LV DD, mild AR. Chest x-ray here demonstrates congestive heart failure. The heart is enlarged on chest x-ray. Repeat chest x-ray shows bibasilar pulmonary opacities, possible superimposed pneumonia or aspiration cannot be excluded. We will continue to monitor. Currently patient has no fever, tachycardia. Continue telemetry. Oxygen, titrate to keep sats above 92%. Lasix 40 mg IV twice a day Nebulizer treatment scheduled Echocardiogram still pending. Qualifiers: Congestive heart failure type: diastolic Qualified Code(s): I50.33 - Acute on chronic diastolic (congestive) heart failure (2) CKD (chronic kidney disease) Current Visit: Yes Status: Acute Assessment and plan: Creatinine 1.93, GFR 33, improved. Avoid nephrotoxins. Patient is receiving Lasix for fluid overload from CHF. Qualifiers: Chronic kidney disease stage: stage 3 (moderate) Qualified Code(s): N18.3 - Chronic kidney disease, stage 3 (moderate) (3) Anemia Current Visit: Yes Status: Chronic Assessment and plan: Patient with chronic anemia. Hemoglobin 7.7 today. Iron is low at 19, percent saturation is 6. B12 and folate ordered and pending. Bedside guaiac is negative. Stool occult blood is ordered and pending. Pt does not wish to receive blood products, is agreeable to iron transfusion and if necessary, will transfer to [place] for blood products. Ferrous Sulfate 325mg po daily, pt states that he does not always take this and is not consistent with taking it at home. Qualifiers: Anemia type: iron deficiency Qualified Code(s): D50.8 - Other iron deficiency anemias (4) CAD (coronary artery disease) Current Visit: Yes Status: Chronic Assessment and plan: Patient denies chest pain. Continue aspirin, Crestor. Patient is on Coumadin. Qualifiers: Coronary Disease-Associated Artery/Lesion type: [place] artery [place] vs. transplanted heart: [place] heart Associated angina: without angina Qualified Code(s): I25.10 - Atherosclerotic heart disease of [place] coronary artery without angina pectoris (5) Hypertension Current Visit: Yes Status: Chronic Assessment and plan: Chronic. Continue home medications. Monitor vitals. Qualifiers: Hypertension type: essential hypertension Qualified Code(s): I10 - Essential (primary) hypertension (6) DVT prophylaxis Current Visit: Yes Status: Acute Assessment and plan: Patient is anticoagulated on Coumadin. - Subjective Interval history: Pt was seen and assessed at 0810. Pt states that he feels some better. Hgb 7.7 today, pt does not wish to recieve blood products and states that he is not always adherent to taking iron supplement. He is agreeable to iron transfusion and if necessary, will go to [place] for blood products. Pt is a non-smoker and denies chest pain, headache, n/v/d, or abdominal pain. He denies dizziness. +3 pitting edema to BLE, pt states is normal and has improved over baseline. - Constitutional Vitals: Temp Pulse Resp BP Pulse Ox 98.0 F 65 15 153/68 93 11/09/17 06:53 11/09/17 06:53 11/09/17 06:53 11/09/17 06:53 11/09/17 06:53 General appearance: Present: cooperative, A&O X 3, pleasant, no acute distress, answers questions appropriately - Head Head exam: Present: atraumatic, normal inspection, normocephalic - Eye Eye exam: Present: normal appearance, conjuntiva pink, sclera anicteric - Neck Neck exam general surgery: Present: normal inspection, supple, trachea midline. Absent: lymphadenopathy, tenderness - Respiratory Respiratory exam: Present: CTAB. Absent: accessory muscle use, rales, rhonchi, wheezes - Cardiovascular Cardiovascular exam: Present: RRR, +S1, +S2. Absent: diastolic murmur, gallop, rubs, systolic murmur - GI/Abdominal GI/Abdominal exam: Present: normal bowel sounds, soft. Absent: distended, hepatomegaly, tenderness - Extremities Exam Extremities exam: Present: normal capillary refill, normal inspection, warm, radial pulses palpable and symmetrical. Absent: calf tenderness, cyanotic, pedal edema, tenderness - Neurological Exam Neurological exam: Present: alert, oriented X3, no focal deficits. Absent: altered, facial droop, speech deficit - Skin Skin exam: Present: dry, intact, normal color, warm. Absent: rash Internal Medicine: Result - Labs CBC & Chem 7: 11/09/17 07:36 11/09/17 07:36 Labs: Short CBC 11/09/17 Range/Units 07:36 WBC 4.7 (4.3-11.1) K/mcL Hgb 7.7 L (12.9-16.9) g/dL Hct 26.6 L (37.5-50.1) % Plt Count 98 L (140-400) K/mcL Neutrophils # 3.3 (1.6-8.9) K/mcL BMP 11/09/17 07:36 Sodium 140 Potassium 3.3 L Chloride 103 Carbon Dioxide 32 H BUN 20 Creatinine 1.93 H Glucose 100 Calcium 8.0 L Cardiac Enzymes 11/08/17 Range/Units 10:15 Troponin I < 0.03 (< 0.04) ng/mL - ABG Interpretation ABG results: PT/INR, D-dimer PT 20.9 Seconds (9.4-12.1) H 11/08/17 00:48 - Impressions Impressions Echocardiogram 11/07/17 18:27 Impressions: LVEF 60-65%. Moderate aortic regurgitation. No pulmonary hypertension. Left Ventricular Wall Motion: Rest Echo Findings All wall segments showed normal motion. Findings: Study Quality * Technically adequate exam. Right Ventricle * Normal right ventricular structure and function. Right Atrium * Normal right atrial size. Interatrial Septum * No evidence of PFO by color Doppler. Aorta * Normally sized aortic root. Pericardium * The pericardium appears normal. * There is a trivial pericardial effusion present. Left Atrium * Mildly dilated left atrium. Pulmonic Valve * No pulmonic stenosis. * Pulmonic valve is not well visualized. * No pulmonic regurgitation. Aortic Valve * Aortic valve not well visualized. * No aortic stenosis. * Moderate aortic regurgitation. Left Ventricle * LVEF 60-65%. * Indeterminate diastolic function. Mitral Valve * Normal mitral valve structure. * No mitral stenosis. * Mild mitral regurgitation. Tricuspid Valve * No tricuspid stenosis. * Mild tricuspid regurgitation. * No pulmonary hypertension. * Estimated RVSP is 34 mmHg. ECG Findings * Normal sinus rhythm. Consult Discharge Plan - Plan Referrals: Kane Phillips MD [Primary Care Provider] -
[2017-11-09 11:58] LABS: Folate 6.8 ng/mL (3.0-16.0)
[2017-11-09 13:13] LABS: Hemoglobin 8.6 g/dL (12.9-16.9)
[2017-11-09 13:18] LABS: INR 1.9; Prothrombin Time 20.6 Seconds (9.4-12.1)
[2017-11-09] MEDS: Cyanocobalamin (B-12) 1,000 MCG TABLET PO SCH (13:41)
[2017-11-09] MEDS: *HR* Warfarin 2 MG TABLET PO SCH (17:15)
[2017-11-10 04:56] LABS: Hemoglobin 7.6 g/dL (12.9-16.9); Red Cell Distribution Width 15.7 % (11.5-14.5)
[2017-11-10 04:58] LABS: Basophils % 0.6 %; Eosinophils # 0.1 K/mcL (0.0-0.6); Eosinophils % 2.8 %; Immature Granulocytes % 0.6 % (0-4); Lymphocytes # 0.8 K/mcL (0.6-4.6); Lymphocytes % 15.6 %; Mean Corpuscular HGB Conc 29.2 g/dL (31.6-35.5); Mean Corpuscular Hemoglobin 25.9 pg (28.0-33.3); Mean Corpuscular Volume 88.4 fL (83.0-100.0); Mean Platelet Volume 10.6 fL (9.4-12.4); Monocytes # 0.6 K/mcL (0.0-1.3); Monocytes % 12.4 %; Neutrophils # 3.4 K/mcL (1.6-8.9); Red Blood Count 2.94 M/mcL (4.19-5.50)
[2017-11-10 05:18] LABS: Calcium 8.1 mg/dL (8.6-10.3); Potassium 3.3 mEq/L (3.5-5.1)
[2017-11-10 05:22] LABS: Platelet Count 92 K/mcL (140-400)
[2017-11-10 05:23] LABS: Hypochromasia Present (Not Present); Platelet Estimate Decreased (Normal)
[2017-11-10] MEDS: Furosemide 40 MG/4 ML VIAL IVP SCH ×2 (08:19→19:03)
[2017-11-10] MEDS: Aspirin 81 MG TAB.CHEW PO SCH (08:19)
[2017-11-10] MEDS: Cyanocobalamin (B-12) 1,000 MCG TABLET PO SCH (08:20)
[2017-11-10] MEDS: Aspirin Enteric Coated 81 MG Tablet PO SCH (08:20)
[2017-11-10] MEDS: amLODIPine 5 MG TABLET PO SCH (08:20)
[2017-11-10] MEDS: Lisinopril 20 MG TABLET PO SCH (08:20)
[2017-11-10] MEDS: *HR* Amiodarone 200 MG TABLET PO SCH (08:20)
[2017-11-10 12:24] LABS: Prothrombin Time 22.4 Seconds (9.4-12.1)
--- NOTE | 2017-11-10 13:38 | Internal Med Progress Note ---
Date of Encounter: 11/10/17 Time of Encounter: 09:00 - Assessment and plan (1) Acute exacerbation of congestive heart failure Current Visit: Yes Status: Acute Assessment and plan: Patient continues to have good urine output. So far has had -3.5 L fluid balance. The renal function also improving. Continue Lasix at 40 mg IV twice a day. Will transition to oral Lasix tomorrow. He does continue to have pedal edema. Respiratory status is improving. Will wean FiO2 as tolerated. Moderate risk for complications. Qualifiers: Congestive heart failure type: diastolic Qualified Code(s): I50.33 - Acute on chronic diastolic (congestive) heart failure (2) Anemia Current Visit: Yes Status: Chronic Assessment and plan: Hemoglobin 7.6. Iron deficiency anemia. Patient does not wish to undergo any further investigation including scopes. Will continue to monitor blood counts. Continue iron therapy. Patient also has vitamin B12 deficiency. Will start replacement. Qualifiers: Anemia type: iron deficiency Iron deficiency anemia type: inadequate dietary iron intake Qualified Code(s): D50.8 - Other iron deficiency anemias (3) CAD (coronary artery disease) Current Visit: Yes Status: Chronic Assessment and plan: Continue aspirin, statin. Qualifiers: Coronary Disease-Associated Artery/Lesion type: [place] artery [place] vs. transplanted heart: [place] heart Associated angina: without angina Qualified Code(s): I25.10 - Atherosclerotic heart disease of [place] coronary artery without angina pectoris (4) CKD (chronic kidney disease) Current Visit: Yes Status: Chronic Assessment and plan: Creatinine is improving. Creatinine 1.85 today. Continue current Lasix dosage. Will follow renal function closely. Qualifiers: Chronic kidney disease stage: stage 3 (moderate) Qualified Code(s): N18.3 - Chronic kidney disease, stage 3 (moderate) (5) DVT prophylaxis Current Visit: Yes Status: Acute Assessment and plan: On Coumadin. INR is therapeutic (6) Hypertension Current Visit: Yes Status: Chronic Assessment and plan: Continue amlodipine and lisinopril. Qualifiers: Hypertension type: essential hypertension Qualified Code(s): I10 - Essential (primary) hypertension - Subjective Interval history: Patient is doing better today. He denies any fever or chills. Shortness of breath is improving. Denies any chest pain. Does continue to have lower extremity edema. No hematochezia or hematemesis. - Constitutional Vitals: Temp Pulse Resp BP Pulse Ox 98.2 F 54 15 156/66 97 11/10/17 11:08 11/10/17 11:08 11/10/17 11:08 11/10/17 11:08 11/10/17 11:08 General appearance: Present: cooperative, A&O X 3, pleasant, no acute distress, answers questions appropriately - Neck Neck exam general surgery: Present: supple, trachea midline. Absent: lymphadenopathy - Respiratory Respiratory exam: Present: decreased breath sounds (At both bases), CTAB. Absent: accessory muscle use, rales, rhonchi, wheezes - Cardiovascular Cardiovascular exam: Present: RRR, +S1, +S2. Absent: diastolic murmur, gallop, rubs, systolic murmur - GI/Abdominal GI/Abdominal exam: Present: normal bowel sounds, soft, no peritoneal signs. Absent: distended, tenderness - Extremities Exam Extremities exam: Present: pedal edema (3+ pitting bilateral), warm, radial pulses palpable and symmetrical. Absent: calf tenderness, cyanotic - Neurological Exam Neurological exam: Present: alert, oriented X3, no focal deficits. Absent: facial droop, speech deficit - Skin Skin exam: Present: dry, intact Internal Medicine: Result - Labs CBC & Chem 7: 11/10/17 04:18 11/10/17 04:18 Labs: Short CBC 11/10/17 Range/Units 04:18 WBC 5.0 (4.3-11.1) K/mcL Hgb 7.6 L (12.9-16.9) g/dL Hct 26.0 L (37.5-50.1) % Plt Count 92 L (140-400) K/mcL Neutrophils # 3.4 (1.6-8.9) K/mcL BMP 11/10/17 04:18 Sodium 140 Potassium 3.3 L Chloride 101 Carbon Dioxide 35 H BUN 22 Creatinine 1.85 H Glucose 110 H Calcium 8.1 L - ABG Interpretation ABG results: PT/INR, D-dimer PT 22.4 Seconds (9.4-12.1) H 11/10/17 12:10 Consult Discharge Plan - Plan Referrals: Kane Phillips MD [Primary Care Provider] -
--- NOTE | 2017-11-10 15:57 | Electrocardiograph Report ---
[place] [id number] Test Date: 2017-11-07 Pat Name: Isma Dave Department: 103 Room: 3B13 Gender: M Student Advisor: TMR : [id number] Requested By: Cabrera Spivey Order Number: [id number] Reading MD: Jorge Alberto Abdalla MD Measurements Intervals [place] Rate: 67 P: VA: 0 QRS: 21 QRSD: 120 T: 83 QT: 396 QTc: 411 Interpretive Statements ATRIAL FIBRILLATION INFERIOR MYOCARDIAL INFARCTION, PROBABLY OLD Electronically Signed On 11-10-2017 15:56:10 EST by Jorge Alberto Abdalla MD
[2017-11-10] MEDS ORDERED: *HR* Warfarin 3 MG TABLET PO ONE (18:00)
[2017-11-10] MEDS ORDERED: Warfarin perPT PO PRN (18:00)
[2017-11-10] MEDS ORDERED: *HR* Warfarin 2 MG TABLET PO ONE (18:00)
[2017-11-11 04:13] LABS: Basophils % 0.4 %; Red Cell Distribution Width 15.8 % (11.5-14.5)
[2017-11-11 04:15] LABS: Eosinophils # 0.2 K/mcL (0.0-0.6); Eosinophils % 2.9 %; Hematocrit 27.4 % (37.5-50.1); Hemoglobin 7.9 g/dL (12.9-16.9); Immature Platelets 4.3 % (1.1-6.1); Lymphocytes # 0.6 K/mcL (0.6-4.6); Lymphocytes % 11.2 %; Mean Corpuscular HGB Conc 28.8 g/dL (31.6-35.5); Mean Corpuscular Hemoglobin 25.8 pg (28.0-33.3); Mean Corpuscular Volume 89.5 fL (83.0-100.0); Mean Platelet Volume 9.8 fL (9.4-12.4); Monocytes # 0.6 K/mcL (0.0-1.3); Monocytes % 11.2 %; Neutrophils # 3.8 K/mcL (1.6-8.9); Platelet Count 101 K/mcL (140-400); Red Blood Count 3.06 M/mcL (4.19-5.50); Segmented Neutrophils % 73.3 %
[2017-11-11 04:19] LABS: INR 2.1; Prothrombin Time 22.5 Seconds (9.4-12.1)
[2017-11-11 04:28] LABS: Calcium 8.1 mg/dL (8.6-10.3); Potassium 3.2 mEq/L (3.5-5.1)
[2017-11-11 05:29] LABS: Hypochromasia Present (Not Present); Platelet Estimate Slight Decrease (Normal)
[2017-11-11] MEDS: Aspirin Enteric Coated 81 MG Tablet PO SCH (08:31)
[2017-11-11] MEDS: amLODIPine 5 MG TABLET PO SCH (08:31)
[2017-11-11] MEDS: Lisinopril 20 MG TABLET PO SCH (08:32)
[2017-11-11] MEDS: *HR* Amiodarone 200 MG TABLET PO SCH (08:32)
[2017-11-11] MEDS: Furosemide 40 MG/4 ML VIAL IVP SCH (08:41)
[2017-11-11] MEDS ORDERED: Iron Sucrose Complex 200 MG in 0.9 % Sodium Chloride 100 ML IVPB ONE (09:00)
[2017-11-11] MEDS ORDERED: Cyanocobalamin (B-12) 1,000 MCG/ML VIAL SQ SCH (09:00)
[2017-11-11 11:11] VITALS: BP 162/71
--- NOTE | 2017-11-11 12:20 | Discharge Summary ---
Date of Encounter: 11/11/17 Time of Encounter: 12:14 - Discharge Diagnosis (1) Acute exacerbation of congestive heart failure Priority: Primary Status: Acute Qualifiers: Congestive heart failure type: diastolic Qualified Code(s): I50.33 - Acute on chronic diastolic (congestive) heart failure (2) Anemia Priority: Secondary Status: Chronic Comments: Iron deficiency, B12 deficiency and CKD related. Qualifiers: Anemia type: iron deficiency Iron deficiency anemia type: inadequate dietary iron intake Qualified Code(s): D50.8 - Other iron deficiency anemias (3) CAD (coronary artery disease) Priority: Secondary Status: Chronic Qualifiers: Coronary Disease-Associated Artery/Lesion type: [place] artery [place] vs. transplanted heart: [place] heart Associated angina: without angina Qualified Code(s): I25.10 - Atherosclerotic heart disease of [place] coronary artery without angina pectoris (4) CKD (chronic kidney disease) Priority: Secondary Status: Chronic Qualifiers: Chronic kidney disease stage: stage 3 (moderate) Qualified Code(s): N18.3 - Chronic kidney disease, stage 3 (moderate) (5) DVT prophylaxis Priority: Secondary Status: Acute (6) Hypertension Priority: Secondary Status: Chronic Qualifiers: Hypertension type: essential hypertension Qualified Code(s): I10 - Essential (primary) hypertension - Discharge Medications Prescriptions: Cyanocobalamin (B-12) [Vitamin B12] 1,000 mcg PO DAILY #30 tablet Ferrous Sulfate [Iron] 325 mg PO TID #90 tablet Furosemide [Lasix] 40 mg PO BIDDIURETIC #60 tablet Potassium Chloride 20 meq PO BID #60 tab.er.prt Home Medications: Acetaminophen [Tylenol] 1,000 mg PO Q6HR 04/17/17 [History] Amiodarone [Cordarone] 100 mg PO DAILY 04/17/17 [History] Amlodipine Besylate/Benazepril [Lotrel 5-20 mg Capsule] 1 tab PO DAILY 04/17/17 [History] Aspirin 81 mg PO DAILY 04/17/17 [History] Rosuvastatin Calcium [Crestor] 20 mg PO DAILY 04/17/17 [History] Warfarin [Coumadin] 2 mg PO QPM 04/17/17 [History] amLODIPine [Norvasc] 5 mg PO DAILY #30 tablet 04/20/17 [Rx] Cyanocobalamin (B-12) [Vitamin B12] 1,000 mcg PO DAILY #30 tablet 12/27/17 [Rx] Ferrous Sulfate [Iron] 325 mg PO TID #90 tablet 11/11/17 [Rx] Furosemide [Lasix] 40 mg PO BIDDIURETIC #60 tablet 11/11/17 [Rx] Potassium Chloride 20 meq PO BID #60 tab.er.prt 11/11/17 [Rx] Allergies/Adverse Reactions: 3 Allergy/AdvReac Type Severity Reaction Status Date / Time No Known Allergies Allergy Verified 03/10/16 15:01 - Notes to Outpatient Provider Patient has Iron deficiency and Vitamin b12 deficiency. Would benefit from B12 injections in clinic as outpatient. Date of admission: 11/07/17 17:54 Primary care physician: Kane Phillips MD Consults: 11/10/17 13:39 Consult to Occupational Therapy [CONS] Routine Comment: Evaluate, develop and implement POC Reason for Consult: Evaluate for home safety Consult to Physical Therapy [CONS] Routine Comment: Evaluate, develop and implement POC Reason for Consult: Evaluate for home safety Discharging clinician: Rebecca Amaya Anticipated date of discharge: 11/11/17 - Patient Status Disposition: Home, Self-Care Condition: Good Functional capacity at discharge: uses cane/walker Overall status at discharge: patient is progressing back to baseline - Discharge Instructions Instructions: Heart Failure (DC), Chronic Hypertension (DC), Anemia (GEN) Follow Up With: Kane Phillips MD [Primary Care Provider] - 11/20/17 8:45 am Gulshan Warner DO [Partnered Physician] - 12/25/17 3:55 pm (2-3 weeks) Scott Hsu DO [Partnered Physician] - (1-2 weeks for diastolic heart failure. THE OFFICE WILL CALL YOU FOR APPOINTMENT. ) Additional Instructions: If symptoms return or worsen please go to the nearest emergency room or call 911. - Diet and Activity Activity: increase activity as tolerated Diet: low fat, low cholesterol, low salt diet Hospital course: Mr. Dave is a 81 year old male patient with a history of atrial fibrillation, coronary artery disease, hypertension was hospitalized here after presenting to the ER with complaints of worsening shortness of breath and pedal edema. He was diagnosed with acute congestive heart failure. Patient does have chronic respiratory failure and is on home oxygen. He was started on treatment with intravenous Lasix. His symptoms of shortness of breath and pedal edema did improve but his renal function did get worse with intravenous Lasix. Patient also has anemia related to his chronic kidney disease. He has both iron deficiency and vitamin B12 deficiency anemia. He did receive intravenous iron infusions. He also received vitamin B12 subcutaneous. I do recommend that he continue to receive vitamin B12 subcutaneous as outpatient during routinely through his primary care provider. He has since been transitioned to oral Lasix and his renal function has improved. He is now feeling much better and is clinically stable to go home. He will follow up with his primary care provider and tobacco feeder catcher for further management of his chronic kidney disease and other medical problems. Patient is on anticoagulation with Coumadin and his INR is therapeutic. Patient did not wish to undergo any kind of procedure including endoscopies to further evaluate his anemia. Since his hemoglobins levels have been stable here, he can be followed further as outpatient. - Time Spent with Patient Total time spent providing and/or coordinating discharge services: Greater than 30 minutes (40 min) - Constitutional Vitals: Temp Pulse Resp BP Pulse Ox 97.8 F 59 17 162/71 98 11/11/17 10:10 11/11/17 10:10 11/11/17 10:10 11/11/17 10:10 11/11/17 10:10 General appearance: Present: cooperative, A&O X 3, pleasant, no acute distress, answers questions appropriately - Respiratory Respiratory exam: Present: CTAB. Absent: accessory muscle use, rales, rhonchi, wheezes - Cardiovascular Cardiovascular exam: Present: RRR, +S1, +S2. Absent: diastolic murmur, gallop, rubs, systolic murmur - GI/Abdominal GI/Abdominal exam: Present: normal bowel sounds, soft, no peritoneal signs. Absent: distended, tenderness - Extremities Exam Extremities exam: Present: pedal edema, warm, radial pulses palpable and symmetrical. Absent: calf tenderness, cyanotic
[2017-11-11] MEDS ORDERED: Furosemide 40 MG TABLET PO SCH (17:00)
[2017-11-11] MEDS ORDERED: *HR* Warfarin 2 MG TABLET PO ONE (18:00)
== END 2017-11-11 15:10 | disposition home or self-care (01) | DRG 291 ==
LOC: 3BNU 13:42 → EMEROO 13:42 → 3BNU 16:48 → SUATTDRO 17:54
PROVIDERS: ADMIT Internal Medicine Nephrology; ATTEND Internal Medicine